=== PATIENT | female | born 1970 | race Caucasian/White ===

== ENCOUNTER 2023-04-29 21:50 | Outpatient (REF) | payer BC, SELFPAY ==
[2023-05-03 11:09] LABS: Age Gdln ACOG Testing Note (.); HPV Aptima Negative (Negative); IGP, Aptima HPV, rfx 16/18,45 Note (.)
== END 2023-04-29 21:51 | disposition home or self-care (01) ==
LOC: LAB 21:50
PROVIDERS: PCP Internal Medicine; Visit Provider Physician Assistant
DX: Z01.419 Encounter for gynecological examination (general) (routine) without abnormal findings (principal)
CPT/HCPCS: 87624; G0145

== ENCOUNTER 2023-12-05 09:30 | Outpatient (OUT) | payer BC, SELFPAY ==
--- NOTE | 2023-12-05 09:32 | MM_ITS ---
Patient Name: MARK CHRISTIAN MR#: [id number] : 1970 Exam Date: 12/05/2023 Ordering Doctor: DR Segundo Lee . RADIOLOGY REPORT PROCEDURE: MM TOMOSYNTHESIS SCREENING BI COMPARISON: MG MAMM SCREEN JOSEFA W CAD, 08/17/2019. MG MAMM SCREEN 3D JOSEFA CAD, 12/11/2021. INDICATIONS: Screening Calculator Name NCI Breast Cancer Risk Assessment Tool 5 Year Breast Cancer Risk 3.10% Lifetime Breast Cancer Risk 23.50% Personal Breast Cancer No Personal Ovarian Cancer No Treatments None Family Cancers Mother with breast cancer at age 46; Sister with breast cancer at age 48; Father with pancreatic cancer at age 42; Grandmother-maternal with gb/liver cancer at age ~70. LOCATION: [facility] BREAST COMPOSITION: Extremely dense, which lowers the sensitivity of mammography. FINDINGS: DIAGNOSTIC CATEGORY 1--NEGATIVE. NO CHANGE FROM COMPARISON ASSESSMENT. Scattered benign-appearing calcifications are present. Scattered benign-appearing lymph nodes are present. RIGHT BREAST: No significant suspicious finding. LEFT BREAST: No significant suspicious finding. RECOMMENDATIONS: ROUTINE MAMMOGRAM AND CLINICAL EVALUATION IN 12 MONTHS. PLEASE NOTE: A NORMAL MAMMOGRAM DOES NOT EXCLUDE THE POSSIBILITY OF BREAST CANCER. A CLINICALLY SUSPICIOUS PALPABLE LUMP SHOULD BE BIOPSIED. Dictated by: Steve Bermeo MD on 12/05/2023 at 13:50 Approved by: Steve Bermeo MD on 12/05/2023 at 13:51
== END 2023-12-05 09:31 | disposition home or self-care (01) ==
LOC: MAMMO 09:30
PROVIDERS: PCP Internal Medicine; Visit Provider Obstetrics & Gynecology
DX: Z12.31 Encounter for screening mammogram for malignant neoplasm of breast (principal); Z80.3 Family history of malignant neoplasm of breast; Z80.8 Family history of malignant neoplasm of other organs or systems
CPT/HCPCS: 77063; 77067

== ENCOUNTER 2024-05-04 21:24 | Outpatient (REF) | payer BC, SELFPAY ==
[2024-05-07 19:07] LABS: Age Gdln ACOG Testing Note (.); HPV Aptima Negative (Negative); IGP, Aptima HPV, rfx 16/18,45 Note (.)
== END 2024-05-04 21:25 | disposition home or self-care (01) ==
LOC: LAB 21:24
PROVIDERS: PCP Internal Medicine; Visit Provider Obstetrics & Gynecology
DX: Z01.419 Encounter for gynecological examination (general) (routine) without abnormal findings (principal)
CPT/HCPCS: 87624; 88175

== ENCOUNTER 2025-04-27 20:23 | Emergency (ER) | payer BC, SELFPAY ==
[2025-04-27 20:32] VITALS: BP 167/83; PULSE 83; TEMP 36.8; O2SAT 97; BMI 19.8
--- OUTSIDE RECORDS SUMMARY | 2025-04-27 20:34 | XMS_ITS | CCD ---
Author Organization [facility] Care Team Providers Care Hand Slitter Name Role Phone LUCIAN POON Admitting LUCIAN Fragoso Attending Unavailable DR ELIAN DIA Primary Care Unavailable MAKENNA, DR JR Bahena Consulting LUCIAN Fragoso Consulting Unavailable South NIEVES, Elian Monte Primary Care Provider DEVIN CANO Attending Unavailable ELIAN DIA Referring Unavailable ELIAN DIA Primary Care Unavailable ELIAN DIA Referring Unavailable ELIAN DIA Primary Care Unavailable DALE RUST Admitting Unavailable DALE RUST Attending Unavailable DALE RUST Referring Unavailable ELIAN DIA Primary Care Unavailable DALE RUST Attending Unavailable DALE RUST Referring Unavailable ELIAN DIA Primary Care Unavailable ZULEMA BLANKENSHIP Attending Unavailable ELIAN DIA Primary Care Unavailable Aimee Pena Primary Care Provider FIONA LEE Attending Unavailable FIONA LEE Referring Unavailable DALE MEYER Attending Unavailable ELIZABETH GUERRERO Referring Unavailable AIMEE OBRIEN Attending Unavailable DALE MEYER Attending Unavailable ELIZABETH GUERRERO Referring Unavailable DALE MEYER Attending Unavailable ELIZABETH GUERRERO Referring Unavailable DALE MEYER Attending Unavailable ELIZABETH GUERRERO Referring Unavailable DALE MEYER Attending Unavailable ELIZABETH GUERRERO Referring Unavailable JENA SOSA Attending Unavailable DALE MEYER Attending Unavailable DALE MEYER Attending Unavailable AIMEE OBRIEN Referring Unavailable DALE MEYER Attending Unavailable ELIZABETH GUERRERO Referring Unavailable Medications Current Medications Medication Drug Class(es) Dates Sig (Normalized) Sig (Original) Calcium Carb-Cholecalciferol (CALCIUM 500 + D3 PO) (13 sources) take 1 tablet by mouth once daily Calcium Carb-Cholecalcifero l (CALCIUM 500 + D3 PO) Take 1 tablet by mouth 1 (one) time each day Active magnesium gluconate 550 mg oral tablet (13 sources) take 1 tablet by mouth once daily magnesium 30 MG tablet Take 30 mg by mouth Daily Active Multiple Vitamin (multivitamin) capsule (13 sources) take 1 capsule by mouth once daily Multiple Vitamin (multivitamin) capsule Take 1 capsule by mouth Daily Active triamcinolone acetonide 1 mg/ml topical cream (5 sources) Corticosteroid Start: 11-04-2024 triamcinolone (Kenalog) 0.1 % cream Indications: Other atopic dermatitis Apply to affected area on hands and arms, up to twice a day when flared, do not use one the face, groin, or underarms, 30 day supply 454 g 11 11/04/2024 Active Problems Active Problems Problem Classification Problem Date Documented Date Episodic/Chronic Allergic reactions (2 sources) Atopic dermatitis; Translations: [Other atopic dermatitis] 11-04-2024 Chronic Disorders of lipid metabolism (16 sources) Raised low density lipoprotein cholesterol; Translations: [Pure hypercholesterolemia, unspecified] Onset: 06-30-2024 06-30-2024 Chronic Disorders of teeth and jaw (20 sources) Temporomandibular [id number]-[id number]-[id number] syndrome; Translations: [Arthralgia of temporomandibular joint, unspecified side] Onset: 06-10-2024 06-10-2024 Episodic Genitourinary symptoms and ill-defined conditions (14 sources) Female stress incontinence; Translations: [Stress incontinence (female) (male)] Onset: 06-30-2024 06-30-2024 Chronic Headache; including migraine (20 sources) Frequent headache; Translations: [Frequent headaches] Onset: 06-11-2024 06-11-2024 Episodic Other and unspecified benign neoplasm (2 sources) Melanocytic nevi of other parts of face; Translations: [Benign neoplasm of skin of other and unspecified parts of face] 11-04-2024 Episodic Other circulatory disease (2 sources) Spider nevus; Translations: [Nevus, non-neoplastic] 11-04-2024 Episodic Other screening for suspected conditions (not mental disorders or infectious disease) (9 sources) Encounter for screening mammogram for malignant neoplasm of breast; Translations: [Encounter for screening for malignant neoplasm of colon] Onset: 12-11-2021 Episodic Other skin disorders (2 sources) Lentiginosis; Translations: [Other melanin hyperpigmentation] 11-04-2024 Episodic Residual codes; unclassified (1 source) Family history of malignant neoplasm of breast; Translations: [FAMILY HX MALIG NEOPLASM OF BREAST] Onset: 12-14-2021 Episodic Residual codes; unclassified (1 source) Family history of malignant neoplasm of other organs or systems; Translations: [FAM HX MALIG NEOPLASM OTH ORGN/SYS] Onset: 12-14-2021 Episodic Spondylosis; intervertebral disc disorders; other back problems (20 sources) Neck pain; Translations: [Cervicalgia] Onset: 06-11-2024 06-11-2024 Episodic Unclassified (1 source) Colon Cancer Screening Onset: 01-01-2024 Unclassified (1 source) screening Onset: 01-20-2024 Past or Other Problems Problem Classification Problem Date Documented Date Episodic/Chronic Residual codes; unclassified (20 sources) Flushing; Translations: [Flushing] Onset: 05-04-2024 05-04-2024 Episodic Residual codes; unclassified (2 sources) Postmenopausal state; Translations: [Asymptomatic menopausal state] 05-04-2024 Episodic Results Test Name Value Interpretation Reference Range Facility CARDIOCHECK - LIPID AND GLUC OSEon 10-29-2024 Cholesterol [Mass/Vol] 218 mg/dL [facility] - 200 [facility] Cholesterol in HDL [Mass/Vol] 92 mg/dL M: 35-65 F: 35-80 [facility] Cholesterol in LDL [Mass/Vol] 126 mg/dL [facility] - 100 [facility] Glucose [Mass/Vol] 89 mg/dL [facility] - 100 [facility] Interpretation and review of laboratory results Abnormal [facility] Triglyceride [Mass/Vol] 81 mg/dL [facility] Glucose pre dose lactose PO [Mass/Vol]on 06-30-2024 Interpretation and review of laboratory results Normal [facility] Lipid 1996 panelon Cholesterol [Mass/Vol] 210 mg/dL [facility] Cholesterol.total/Ch olesterol in HDL [Mass ratio] 2.3 {ratio} [facility] HDL-C 91 [facility] Interpretation and review of laboratory results Abnormal [facility] LDL-C 104 [facility] Triglyceride [Mass/Vol] 76 mg/dL [facility] DEXA BONE DENSITYon 06-10-20 DEXA BONE DENSITY Examination: DEXA BONE DENSITY Clinical History: postmenopausal state Technique: Bone density study was performed. T score values for the lumbar spine, right femoral neck and left femoral neck were obtained. COMPARISON: None Findings: Value for the lumbar spine from L1-L4 is -2.1. Value for the right femoral neck is -1.8. Value for the left femoral neck is -2.0. Findings are compatible with severe osteopenia with moderate to high increased fracture risk. No evidence of osteoporosis. IMPRESSION: Impression: Findings compatible with severe osteopenia with moderate to high increased fracture risk. ELECTRONICALLY SIGNED BY: Stoney Santoyo M.D. Normal Not Available IGP,APTIMA HPV,AGE GDLNon AGE GDLN ACOG TESTING Note . [facility] Comment on above: TESTS RESULT FLAG UN ITS REF RANGE LAB Clinician Provided Cytology Information Source.............Cervix;Endocervix No. of containers..01 ThinPrep Vial Age Algo ACOG Jessica... 31 01 FLAG LEGEND: L-Low Normal,H-High Normal,LL-Alert Low,HH-Alert High <-Panic Low,>-Panic High,A-Abnormal,AA-Critical Abnormal Performed at: 01 =G [facility] [address] [address] Akanksha Castañeda MD, HPV APTIMA Negative Negative [facility] e Comment on above: This nucleic acid am plification test detects fourteen high- risk HPV types (16,18,31,33,35,39,45,51,52,56,58,59,66,68) without differentiation. Performed at: =G - [facility] [id number] Head Butler: Akanksha Castañeda MD, Phone: [phone] Performed at: - [facility], [place] [id number] Head Butler: Akanksha Castañeda MD, Phone: [phone] IGP, APTIMA HPV, RFX 16/18,45 Note . [facility] Comment on above: TESTS RESULT FLAG UN ITS REF RANGE LAB DIAGNOSIS: 02 NEGATIVE FOR INTRAEPITHELIAL LESION OR MALIGNANCY. Specimen adequacy: 02 Satisfactory for evaluation. Endocervical and/or squamous metaplastic cells (endocervical component) are present. Performed by: Josiah Noriega, Camp Housekeeper ([facility]) . 02 Note: Note 02 The Pap smear is a screening test designed to aid in the detection of premalignant and malignant conditions of the uterine cervix. It is not a diagnostic procedure and should not be used as the sole means of detecting cervical cancer. Both false-positive and false-negative reports do occur. Test Methodology: Note 02 This liquid based ThinPrep(R) pap test was screened with the use of an image guided system. HPV Genotype Reflex Note 02 Criteria not met, HPV Genotype not performed. FLAG LEGEND: L-Low Normal,H-High Normal,LL-Alert Low,HH-Alert High <-Panic Low,>-Panic High,A-Abnormal,AA-Critical Abnormal Performed at: 02 [facility] [address] [place] [address] Akanksha Castañeda MD, BRUSH-SPATULA CERVIX ENDOCERVIX [facility] MG MAMM SCREEN 3D JOSEFA CADon 12-11-2021 MG MAMM SCREEN 3D JOSEFA CAD Patient: GERTRUDE CHRISTIAN Exam Date: 12/11/2021 : 1970 Gender:F Ordering : DR. LUCIAN POON D.O. Admission #: [id number] Family : Order #: [id number] CLICK HERE TO VIEW EXAM RADIOLOGY REPORT PROCEDURE: MAMMOGRAM SCREENING 3D BILATERAL CAD COMPARISON: MG MAMM JOSEFA SCRN W CAD DIG, 07/10/2016. MG MAMM SCREEN JOSEFA W CAD, 08/17/2019. INDICATIONS: Screening mammography Calculator Name NCI Breast Cancer Risk Assessment Tool 5 Year Breast Cancer Risk 2.90% Lifetime Breast Cancer Risk 24.20% Personal Breast Cancer No Personal Ovarian Cancer No Treatments None Family Cancers Mother with breast cancer at age 46; Sister with breast cancer at age 48; Father with pancreatic cancer at age 42; Grandmother-maternal with gb/liver cancer at age 70. LOCATION: [facility] BREAST COMPOSITION: Extremely dense, which lowers the sensitivity of mammography. FINDINGS: DIAGNOSTIC CATEGORY 1--NEGATIVE. NO CHANGE FROM COMPARISON ASSESSMENT. Scattered benign-appearing calcifications are present. Scattered benign-appearing lymph nodes are present. RIGHT BREAST: No significant suspicious finding. LEFT BREAST: No significant suspicious finding. RECOMMENDATIONS: ROUTINE MAMMOGRAM AND CLINICAL EVALUATION IN 12 MONTHS. PLEASE NOTE: A NORMAL MAMMOGRAM DOES NOT EXCLUDE THE POSSIBILITY OF BREAST CANCER. A CLINICALLY SUSPICIOUS PALPABLE LUMP SHOULD BE BIOPSIED. Dictated by: Jr Bermeo MD on 12/11/2021 at 08:07 Approved by: Jr Bermeo MD on 12/11/2021 at 08:10 Normal [facility] Vital Signs Date Time Vital Sign Value Performing Clinician Faci lity 06-30-2024 16:22-0400 Body height 154.9 cm Aimee Hemmer PA Work Phone: [facility] 06-30-2024 [id number] Body mass index (BMI) [Ratio] 20.37 kg/m2 Aimee Hemmer PA Work Phone: [facility] 06-30-2024 16:22-0400 Body weight 48.9 kg Aimee Hemmer PA Work Phone: [facility] 06-30-2024 16:22-0400 Diastolic blood pressure 78 mm[Hg] Aimee Hemmer PA Work Phone: [facility] 06-30-2024 16:22-0400 Heart rate 63 /min Aimee Hemmer PA Work Phone: [facility] 06-30-2024 16:22-0400 Respiratory rate 16 /min Aimee Hemmer PA Work Phone: [facility] 06-30-2024 16:22-0400 SaO2% (BldA) [Mass fraction] 99 % Aimee Hemmer PA Work Phone: [facility] 06-30-2024 16:22-0400 Systolic blood pressure 136 mm[Hg] Aimee Hemmer PA Work Phone: [facility] 05-04-2024 13:21-0400 Body height 154.9 cm Fiona Jesus DO Work Phone: [facility] 05-04-2024 13:21-0400 Body mass index (BMI) [Ratio] 20.18 kg/m2 Fiona Jesus DO Work Phone: [facility] 05-04-2024 13:21-0400 Body weight 48.44 kg Fiona Jesus DO Work Phone: [facility] 05-04-2024 13:21-0400 Diastolic blood pressure 66 mm[Hg] Fiona Jesus DO Work Phone: [facility] 05-04-2024 13:21-0400 Systolic blood pressure 110 mm[Hg] Fiona Jesus DO Work Phone: [facility] Encounters Encounter Date Encounter Type Care Provider Facility Start: 12-23-2024 End: 12-23-2024 Bamboo flowsyuliya Meyer PT Work Phone: [facility] PT Start: 12-23-2024 End: 12-23-2024 Bamboo flowsheet Dale Meyer PT Work Phone: [facility] PT Start: 12-23-2024 End: 12-23-2024 ambulatory Dale Meyer PT Work Phone: [facility] PT Comment on above: Cervicalgia (Primary Dx); Frequent headaches; TMJ pain dysfunction syndrome Start: 12-07-2024 End: 12-07-2024 ambulatory Dale Meyer PT Work Phone: [facility] PT Comment on above: Cervicalgia (Primary Dx); Frequent headaches; TMJ pain dysfunction syndrome Start: 11-25-2024 End: 11-25-2024 ambulatory DALE MEYER Not Available Start: 11-04-2024 End: 11-04-2024 Bamboo flowsheet Jena A Felter MANAGER [employer] Work Phone: [facility] Start: 11-04-2024 End: 11-04-2024 Bamboo flowsheet Jena A Felter MANAGER [employer] Work Phone: [facility] Start: 11-04-2024 End: 11-04-2024 Office outpatient visit 25 minutes Jena A Felter MANAGER [employer] Work Phone: [facility] Comment on above: Other atopic dermati tis; Melanocytic nevus of face, other location; Lentigines; Capillary angioma Start: 11-04-2024 End: 11-04-2024 ambulatory JENA A FELTER Not Available Start: 10-29-2024 End: 10-29-2024 ambulatory FIONA LEE Not Available Start: 10-29-2024 End: 10-29-2024 [facility] encounter [facility] Comment on above: Screening for diabet es mellitus; Screening for lipoid disorders Start: 08-31-2024 End: 08-31-2024 ambulatory Dale Meyer PT Work Phone: [facility] Comment on above: Cervicalgia (Primary Dx); Frequent headaches; TMJ pain dysfunction syndrome Start: 08-20-2024 End: 08-20-2024 ambulatory Dale Meyer PT Work Phone: [facility] Comment on above: TMJ pain dysfunction syndrome (Primary Dx); Cervicalgia; Frequent headaches Start: 07-22-2024 End: 07-22-2024 ambulatory Dale Meyer PT Work Phone: [facility] Comment on above: Cervicalgia (Primary Dx); Frequent headaches; TMJ pain dysfunction syndrome Start: 07-01-2024 End: 07-01-2024 ambulatory Dale Meyer PT Work Phone: [facility] Comment on above: Cervicalgia (Primary Dx); Frequent headaches; TMJ pain dysfunction syndrome Start: 06-30-2024 End: 06-30-2024 Patient encounter status Aimee Obrien PA Work Phone: [facility] Work Phone: Start: 06-30-2024 End: 06-30-2024 Periodic preventive med est patient 40-64yrs Aimee Obrien PA Work Phone: [facility] Comment on above: Wellness examination (Primary Dx); Elevated LDL cholesterol level (CMS/HCC) Start: 06-30-2024 End: 06-30-2024 ambulatory AIMEE OBRIEN Not Available Start: 06-30-2024 End: 06-30-2024 Bamboo flowsheet Aimee Obrien PA Work Phone: [facility] Start: 06-30-2024 End: 06-30-2024 Bamboo flowsheet Aimee Obrien PA Work Phone: [facility] Start: 06-11-2024 End: 06-11-2024 Bamboo flowsheet Dale Meyer PT Work Phone: [facility] Start: 06-11-2024 End: 06-11-2024 Bamboo flowsheet Dale Meyer PT Work Phone: [facility] Start: 06-11-2024 End: 06-11-2024 ambulatory Dale Meyer PT Work Phone: [facility] Comment on above: TMJ pain dysfunction syndrome (Primary Dx); Cervicalgia; Frequent headaches Start: 06-10-2024 End: 06-10-2024 ambulatory FIONA JESUS Not Available Start: 05-04-2024 End: 05-04-2024 Bamboo flowsheet Fiona Jesus DO Work Phone: [facility] Start: 05-04-2024 End: 05-07-2024 Bamboo flowsheet Fiona Jesus DO Work Phone: [facility] Start: 05-04-2024 End: 05-07-2024 Clinis[facility] Result Encounter Fiona Jesus DO Work Phone: [facility] Unsolicited Start: 05-04-2024 End: 05-04-2024 Patient encounter procedure Fiona Jesus DO Work Phone: [facility] Work Phone: Start: 05-04-2024 End: 05-04-2024 Periodic preventive med est patient 40-64yrs Fiona Jesus DO Work Phone: [facility] Comment on above: Well woman exam with routine gynecological exam; Postmenopausal state; Hot flashes Start: 05-04-2024 End: 05-04-2024 ambulatory FIONA JESUS Not Available Start: 01-21-2024 End: 01-21-2024 Evaluation and management of inpatient ZULEMAJoel BLANKENSHIP [facility] Start: 01-20-2024 End: 01-21-2024 Evaluation and management of inpatient DALE RUST [facility] Start: 01-15-2024 End: 01-15-2024 ambulatory ELIAN DIA [facility] Start: 01-01-2024 End: 01-01-2024 ambulatory DEVIN CANO [facility] Start: 10-10-2023 Chart abstracting Jena avina MANAGER [employer] Work Phone: [facility] Start: 12-11-2021 End: 12-12-2021 ambulatory LUCIAN POON Facility: Procedures Date Procedure Procedure Detail Performing Clinician Start: 10-29-2024 Lipid panel Alonso Cruz DO Work Phone: Start: 05-04-2024 IGP,APTIMA HPV,AGE GDLN Fiona Lee DO Work Phone: Start: 05-04-2024 Microscopic observat ion [Identifier] in Cervix by Cyto stain Dale Meyer PT Work Phone: Start: 01-20-2024 Colonoscopy Dale azul PT Work Phone: Start: 12-05-2023 Mammography Dale azul PT Work Phone: Start: 11-05-2023 Glucose pre dose lac [place]se PO [Mass/Vol] Aimee Obrien PA Work Phone: Start: 11-05-2023 Lipid panel Aimee romero PA Work Phone: Plan of Treatment Date Care Activity Detail Author Start: 01-19-2034 Screening for malignant neoplasm of colon [facility] Start: 05-04-2027 Screening for malignant neoplasm of cervix [facility] Start: 11-23-2026 Screening for malignant neoplasm of cervix HPV/Cotest [facility] Start: 11-04-2025 End: 11-04-2025 Patient encounter procedure 11/04/2025 1:00 PM EST Office Visit [facility] [address] [place] [address] Jena Sosa, MANAGER [employer] [address] [place] [address] [facility] Start: 05-17-2025 End: 05-17-2025 Patient encounter procedure 05/17/2025 1:00 PM EDT Office Visit [facility] [address] [place] [address] Fiona Lee, DO [address] [place] [address] [facility] Start: 05-10-2025 Influenza vaccination Influenz a Vaccine (Season Ended) [facility] Start: 12-23-2024 End: 12-23-2024 ambulatory 12/23/2024 7:00 AM EDT Treatment [facility] [address] [place] [phone] Dale Meyer, PT [address] [place] [address] Cervicalgia (Primary Dx); Frequent headaches; TMJ pain dysfunction syndrome [facility] Comment on above: Cervicalgia (Primary Dx); Frequent headaches; TMJ pain dysfunction syndrome Start: 12-04-2024 Screening for malignant neoplasm of breast Mammogram [facility] Start: 11-04-2024 End: 11-04-2024 [facility] Comment on above: Arrived Start: 08-31-2024 End: 08-31-2024 ambulatory 08/31/2024 7:00 AM EST Treatment [facility] [address] [place] [address] Dale Meyer, PT [address] [place] [address] [facility] PT Start: 07-23-2024 End: 07-23-2024 ambulatory 07/23/2024 7:30 AM EST Treatment [facility] [address] [place] [address] Dale Meyer, PT [address] [place] [address] [facility] Start: 07-01-2024 End: 07-01-2024 ambulatory 07/01/2024 7:30 AM EDT Treatment [facility] [address] [place] [phone] Dale Meyer, PT [address] [place] [address] [facility] Start: 06-30-2024 End: 06-30-2024 Patient encounter procedure [facility] Comment on above: Arrived Start: 06-11-2024 End: 06-11-2024 ambulatory 06/11/2024 7:30 AM EDT Evaluation [facility] [address] [place] [phone] Dale Meyer, PT [address] [place] [address] TMJ pain dysfunction syndrome (Primary Dx) [facility] Comment on above: TMJ pain dysfunction syndrome (Primary Dx) Start: 05-10-2024 Influenza vaccination Influenza Vacc ine (#1) [facility] Start: 05-04-2024 End: 05-04-2025 DXA Skeletal system Views for bone density DEXA bone density Imaging Routine Postmenopausal state Expected: 05/04/2024 (Approximate), Expires: 05/04/2025 [facility] Work Phone: Comment on above: Expected: 05/04/2024 (Approximate), Expires: 05/04/2025 Start: 05-04-2024 End: 05-04-2024 Patient encounter procedure [facility] Comment on above: Arrived Start: 11-04-2023 End: 11-04-2023 Patient encounter procedure 11/04/2023 1:05 PM EST Office Visit [facility] [address] [place] [phone] Jena Sosa, MANAGER [employer] [address] [place] [address] [facility] Start: 1970 [facility] PREP TIS PAP AN D HR HPV DNA THIN PREP TIS PAP AND HR HPV DNA Pathology and Cytology Routine Well woman exam with routine gynecological exam Ordered: 05/04/2024 [facility] Comment on above: Ordered: 05/04/2024 Payers Date Payer Category Payer Unknown [id number] 2022 Private Health Insurance [id number] 2022 Unknown [id number] 2022 Unknown [id number] 1970 Unknown [id number] 2.16.84 0.1.263766.3.579.2.593 1970 Unknown [id number] 2.16.8 40.1.757817.3.579.2.1286 1970 Unknown [id number] 2.16.8 40.1.304155.3.579.2.1286 1970 Unknown [id number] 2.16.8 40.1.212101.3.579.2.1286 1970 Unknown [id number] 2.16.8 40.1.292776.3.579.2.1286 1970 Unknown [id number] 2.16.8 40.1.389643.3.579.2.1286 1970 Unknown [id number] 2.16.8 40.1.990987.3.579.2.1286 1970 Unknown [id number] 2.16.84 0.1.239165.3.579.2.1259 1970 Unknown [id number] 2.16.84 0.1.314321.3.579.2.1259 1971 Unknown [id number] 2.16.84 0.1.040402.3.579.2.1259 1971 Unknown [id number] 2.16.84 0.1.589314.3.579.2.1259 1971 Unknown [id number] 2.16.84 0.1.356774.3.579.2.1259 1971 Unknown [id number] 2.16.84 0.1.570444.3.579.2.1258 1971 Unknown [id number] 2.16.84 0.1.516417.3.579.2.9 1970 Unknown [id number] 2.16.84 0.1.552867.3.579.2.1258 1971 Unknown [id number] 2.16.84 0.1.296742.3.579.2.1258 1971 Unknown [id number] 2.16.84 0.1.679766.3.579.2.1258 1971 Unknown [id number] 2.16.84 0.1.927048.3.579.2.1258 1970 Unknown [id number] 2.16.84 0.1.694866.3.579.2.1258 1971 Unknown [id number] 2.16.84 0.1.700559.3.579.2.9 1958 Unknown [id number] Social History Date Type Detail Facility Start: 10-10-2023 End: 11-04-2023 Tobacco smoking status [facility] Never smoked tobacco [facility] Start: 10-10-2023 End: 11-04-2024 Alcohol intake Current drinker of alcohol (finding) [facility] Start: 1970 Sex Assigned At Not on file N [facility] Start: 10-31-2023 End: 11-04-2024 Gender identity Not on file [facility] Start: 11-04-2023 Tobacco use and exposure Smoke less tobacco non-user [facility] Start: 10-31-2023 End: 11-04-2024 History of Social function [facility] In a typical week, h ow many times do you talk on the telephone with family, friends, or neighbors? Patient declined [facility] Are you now , , , , never or living with a partner? [facility] (I/We) worried wheth er (my/our) food would run out before (I/we) got money to buy more. Never true [facility] In the past 12 month s, was there a time when you were not able to pay the mortgage or rent on time? No [facility] Clinical Notes 05-04-2024 to 12-23-2024 Dale Meyer, PT - 12/23/2024 7:00 AM Paz Meyer, PT - 12/07/2024 7:00 AM Kaylin Sosa, [employer] - 11/04/2024 1:05 PM Mame Caballero RN - 10/29/2024 9:00 AM EST Note Date & Type Note Facility 12-23-2024 History of Presen t illness Narrative Images from the original note were not included. Gertrude Christian [id number] 12/22/24 Subjective: Phone consult 06/10 53 yof sent to PT by Dr Guerrero for tmj syndrome L tmj dislocated, appliance lower teeth 2 months Hx tmj could always pop back in place in past Meniscus is in front of condyle Hoping to avoid surgery 7th Symptoms have gotten worse Doc wants me to get back to therapy 2nd Objective/Examination: *Posture: Impaired forward head syndrome and increased kyphosis *Cervical Motion: Impaired motion and discomfort/pain *TMJ Motion: Impaired with deviation to L upon mandibular depression *Cervical Proprioception Testing: Poor head neck awareness *Palpation: Tonic paraspinal and TMJ pterygoid mms Therapeutic Intervention: reEvaluation 12/23 Estim heat 15 Manual therapy 10 JOSE DANIEL Traction Chin tuck lift Catie 52 min Assessment: Suspected Therapy Diagnosis: TMJ and Cervical impairment Problems: Poor posture, impaired motion neck and TMJ, Poor postural strength, Intolerable pain, Stiffness TMJ, Difficulty eating, Neck pain and headaches Goals: Optimize posture, restore motion neck, improve alignment jaw, good postural strength, tolerable pain and ability to eat without dificulty, reduce neck pain & headaches Plan: Cervical manual therapy, TMJ manual therapy, Estim, Dry Needling, Aerobics/heat Frequency/Duration: Once every other week Potential: Good I hereby deem this POC medically necessary. Please sign below. Josiane Lu, DIMA, BOBBY, ANDIE Director Vestibular Rehabilitation documented in this encounter [facility] 12-07-2024 History of Presen t illness Narrative Images from the original note were not included. Gertrude Christian [id number] 12/04/24 Subjective: Phone consult 06/10 53 yof sent to PT by Dr Guerrero for tmj syndrome L tmj dislocated, appliance lower teeth 2 months Hx tmj could always pop back in place in past Meniscus is in front of condyle Hoping to avoid surgery 6th Symptoms have gotten worse Doc wants me to get back to therapy 2nd Objective/Examination: *Posture: Impaired forward head syndrome and increased kyphosis *Cervical Motion: Impaired motion and discomfort/pain *TMJ Motion: Impaired with deviation to L upon mandibular depression *Cervical Proprioception Testing: Poor head neck awareness *Palpation: Tonic paraspinal and TMJ pterygoid mms Therapeutic Intervention: reEvaluation 12/07 Estim heat 15 Manual therapy 12 JOSE DANIEL Chin tuck lift Catie Manual therapy and motion jose daniel spine 1 hour Assessment: Suspected Therapy Diagnosis: TMJ and Cervical impairment Problems: Poor posture, impaired motion neck and TMJ, Poor postural strength, Intolerable pain, Stiffness TMJ, Difficulty eating, Neck pain and headaches Goals: Optimize posture, restore motion neck, improve alignment jaw, good postural strength, tolerable pain and ability to eat without dificulty, reduce neck pain & headaches Plan: Cervical manual therapy, TMJ manual therapy, Estim, Dry Needling, Aerobics/heat Frequency/Duration: Once every other week Potential: Good I hereby deem this POC medically necessary. Please sign below. Josiane Lu, DIMA, BOBBY, ANDIE Director Vestibular Rehabilitation documented in this encounter [facility] 11-04-2024 History of Presen t illness Narrative Skin Check Location: Patient requests a full body skin examination Dermatologic history: no history of skin cancer, no history of atypical moles, family history of melanoma (mother) Last visit: 1 year ago Rash Location: left forearm, right hand Duration: 4 months Quality: itchy Associated symptoms: red, scaly Current treatments: Aquaphor, OTC benadryl, OTC HC cream Established patient All pertinent medical history, medications, and allergies were reviewed. General Exam: alert, oriented to person, place, and time, normal affect, well appearing Unaccompanied Scalp, Examined , exam limited by hair Right leg Examined Head, Face Examined Left leg Examined Neck Examined Right foot Examined Chest Examined Left foot Examined Back Examined Buttocks Examined Abdomen Examined Digits,nails: Examined Right arm Examined Patient wearing nail greek, Denies dark streaks on toenails Left arm Examined Lymphatics: Not examined Hands Examined 1. Other atopic dermatitis Left Elbow - Posterior, Left Forearm - Posterior, Left Hand - Posterior, Right Hand - Posterior Scaly erythematous plaques +/- dyspigmentation, lichenification, excoriations. Flaring today Discussed that atopic dermatitis is a chronic condition that can be controlled but not cured. Start TAC 0.1% cream bid prn when flared, hold if smooth/asymptomatic. Encouraged daily moisturizing and gentle cleansers to prevent flares. Notify office if flaring despite treatment. Related Medications triamcinolone (Kenalog) 0.1 % cream Apply to affected area on hands and arms, up to twice a day when flared, do not use one the face, groin, or underarms, 30 day supply 2. Melanocytic nevus of face, other location Right Alar Crease Scattered benign appearing, regular brown to light brown melanocytic papules and macules with similar morphology Counseled regarding these benign growths. Rarely, a nevus can develop into malignant melanoma, so any changing nevi should be promptly re-evaluated. 3. Lentigines Scattered bejarano macules in sun-exposed areas. The patient was informed that lentigines are benign pigmented lesions that occur on sun-exposed and sun-damaged skin. No treatment is necessary. Recommended regular use of broad spectrum sunscreen SPF 30 or higher 4. Capillary angioma (2) Abdomen (Lower Torso, Anterior), Chest (Upper Torso, Anterior) Scattered carter-red papule(s). The patient was informed that angiomas are benign growths on the the skin. No treatment is necessary. 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 documented in this encounter [facility] 08-31-2024 History of Presen t illness Narrative Images from the original note were not included. Gertrude Christian [id number] 08/30/24 Subjective: Phone consult 06/10 53 yof sent to PT by Dr Guerrero for tmj syndrome L tmj dislocated, appliance lower teeth 2 months Hx tmj could always pop back in place in past Meniscus is in front of condyle Hoping to avoid surgery 5h Objective/Examination: *Posture: Impaired forward head syndrome and increased kyphosis *Cervical Motion: Impaired motion and discomfort/pain *TMJ Motion: Impaired with deviation to L upon mandibular depression *Cervical Proprioception Testing: Poor head neck awareness *Palpation: Tonic paraspinal and TMJ pterygoid mms Therapeutic Intervention: reEvaluation Estim heat 12 Manual therapy 13 JOSE DANIEL chin tucks with pressure gauge Chin tuck lift T Catie Manips 39 Assessment: Suspected Therapy Diagnosis: TMJ and Cervical impairment Problems: Poor posture, impaired motion neck and TMJ, Poor postural strength, Intolerable pain, Stiffness TMJ, Difficulty eating, Neck pain and headaches Goals: Optimize posture, restore motion neck, improve alignment jaw, good postural strength, tolerable pain and ability to eat without dificulty, reduce neck pain & headaches Plan: Cervical manual therapy, TMJ manual therapy, Estim, Dry Needling, Aerobics/heat Frequency/Duration: Once every other week Potential: Good I hereby deem this POC medically necessary. Please sign below. Dale Meyer, DScPT, OCS, COMT, AIB-VAM Director Vestibular Rehabilitation documented in this encounter [facility] 08-20-2024 History of Presen t illness Narrative Images from the original note were not included. Gertrude Christian [id number] 08/19/24 Subjective: Phone consult 06/10 53 yof sent to PT by Dr Guerrero for tmj syndrome L tmj dislocated, appliance lower teeth 2 months Hx tmj could always pop back in place in past Meniscus is in front of condyle Hoping to avoid surgery 4th Objective/Examination: *Posture: Impaired forward head syndrome and increased kyphosis *Cervical Motion: Impaired motion and discomfort/pain *TMJ Motion: Impaired with deviation to L upon mandibular depression *Cervical Proprioception Testing: Poor head neck awareness *Palpation: Tonic paraspinal and TMJ pterygoid mms Therapeutic Intervention: reEvaluation Manual therapy 10 Estim heat 15 Postural jose daniel 10 Aerobics and ice 15 Assessment: Suspected Therapy Diagnosis: TMJ and Cervical impairment Problems: Poor posture, impaired motion neck and TMJ, Poor postural strength, Intolerable pain, Stiffness TMJ, Difficulty eating, Neck pain and headaches Goals: Optimize posture, restore motion neck, improve alignment jaw, good postural strength, tolerable pain and ability to eat without dificulty, reduce neck pain & headaches Plan: Cervical manual therapy, TMJ manual therapy, Estim, Dry Needling, Aerobics/heat Frequency/Duration: Once every other week Potential: Good I hereby deem this POC medically necessary. Please sign below. Dale Meyer, Josiane, OCS, COMT, AIB-VAM Director Vestibular Rehabilitation documented in this encounter [facility] 07-22-2024 History of Presen t illness Narrative Images from the original note were not included. Gertrude Christian [id number] 07/22/24 Subjective: Phone consult 06/10 53 yof sent to PT by Dr Guerrero for tmj syndrome L tmj dislocated, appliance lower teeth 2 months Hx tmj could always pop back in place in past Meniscus is in front of condyle Hoping to avoid surgery 3rd Objective/Examination: *Posture: Impaired forward head syndrome and increased kyphosis *Cervical Motion: Impaired motion and discomfort/pain *TMJ Motion: Impaired with deviation to L upon mandibular depression *Cervical Proprioception Testing: Poor head neck awareness *Palpation: Tonic paraspinal and TMJ pterygoid mms Therapeutic Intervention: reEvaluation Estim heat Manual therapy Review exercises Jose Daniel Aerobics iceGentle rom neck/arms with chin tuck See flow sheet 39 Assessment: Suspected Therapy Diagnosis: TMJ and Cervical impairment Problems: Poor posture, impaired motion neck and TMJ, Poor postural strength, Intolerable pain, Stiffness TMJ, Difficulty eating, Neck pain and headaches Goals: Optimize posture, restore motion neck, improve alignment jaw, good postural strength, tolerable pain and ability to eat without dificulty, reduce neck pain & headaches Plan: Cervical manual therapy, TMJ manual therapy, Estim, Dry Needling, Aerobics/heat Frequency/Duration: Once every other week Potential: Good I hereby deem this POC medically necessary. Please sign below. Dale Meyer, DScPT, OCS, COMT, AIB-VAM Director Vestibular Rehabilitation documented in this encounter [facility] 07-01-2024 History of Presen t illness Narrative Images from the original note were not included. Gertrude Christian [id number] 07/01/24 Subjective: Phone consult 06/10 53 yof sent to PT by Dr Guerrero for tmj syndrome L tmj dislocated, appliance lower teeth 2 months Hx tmj could always pop back in place in past Meniscus is in front of condyle Hoping to avoid surgery 2nd Objective/Examination: *Posture: Impaired forward head syndrome and increased kyphosis *Cervical Motion: Impaired motion and discomfort/pain *TMJ Motion: Impaired with deviation to L upon mandibular depression *Cervical Proprioception Testing: Poor head neck awareness *Palpation: Tonic paraspinal and TMJ pterygoid mms Therapeutic Intervention: reEvaluation Estim heat Manual therapy Review exercises Jose Daniel Aerobics iceGentle rom neck/arms with chin tuck See flow sheet 39 Assessment: Suspected Therapy Diagnosis: TMJ and Cervical impairment Problems: Poor posture, impaired motion neck and TMJ, Poor postural strength, Intolerable pain, Stiffness TMJ, Difficulty eating, Neck pain and headaches Goals: Optimize posture, restore motion neck, improve alignment jaw, good postural strength, tolerable pain and ability to eat without dificulty, reduce neck pain & headaches Plan: Cervical manual therapy, TMJ manual therapy, Estim, Dry Needling, Aerobics/heat Frequency/Duration: Once every other week Potential: Good I hereby deem this POC medically necessary. Please sign below. Dale Meyer, DScPT, OCS, COMT, AIB-VAM Director Vestibular Rehabilitation documented in this encounter [facility] 06-30-2024 History of Presen t illness Narrative Images from the original note were not included. Subjective Patient ID: Gertrude Christian is a 53 y.o. female who presents for wellness. Subjective Gertrude Christian is a 53 y.o. female and is here for a comprehensive physical exam. The patient reports no problems. Runs and walks routinely for exercise, anywhere from 2-4 miles, 3-5 times a week. Current Outpatient Medications on File Prior to Visit Medication Sig Dispense Refill Calcium Carb-Cholecalciferol (CALCIUM 500 + D3 PO) Take 1 tablet by mouth 1 (one) time each day magnesium 30 MG tablet Take 30 mg by mouth Daily Multiple Vitamin (multivitamin) capsule Take 1 capsule by mouth Daily No current facility-administered medications on file prior to visit. I have reviewed and reconciled the history and medication list with the patient today. No Known Allergies Social History Tobacco Use Smoking status: Never Smokeless tobacco: Never Vaping Use Vaping status: Never Used Substance Use Topics Alcohol use: Yes Drug use: Never Family History Problem Relation Name Age of Onset Breast cancer Mother Melanoma Mother Cancer Father Breast cancer Sister No Known Problems Sister No Known Problems Sister No Known Problems Brother Gallbladder disease Maternal Grandmother gallbladder cancer Colon cancer Paternal Grandmother Prostate cancer Paternal Grandfather Past Medical History: Diagnosis Date BPPV (benign paroxysmal positional vertigo) 2013 Traumatic BPPV (skull fx) Past Surgical History: Procedure Laterality Date SECTION, LOW TRANSVERSE COLONOSCOPY 01/20/2024 TUMOR EXCISION 1979 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 HENT: Negative for congestion, ear pain, rhinorrhea and sore throat. Eyes: Negative for pain, discharge and visual disturbance. Respiratory: Negative for cough, shortness of breath and wheezing. Cardiovascular: Negative for chest pain, palpitations and leg swelling. Gastrointestinal: Negative for abdominal pain, constipation, diarrhea, nausea and vomiting. Genitourinary: Negative for difficulty urinating, dysuria and frequency. Musculoskeletal: Negative for arthralgias and back pain. Skin: Negative for rash. Neurological: Negative for dizziness and numbness. Psychiatric/Behavioral: Negative for sleep disturbance. The patient is not nervous/anxious. Objective Physical Exam Constitutional: General: She is not in acute distress. Appearance: Normal appearance. She is well-developed. HENT: Head: Normocephalic and atraumatic. Right Ear: Tympanic membrane and ear canal normal. Left Ear: Tympanic membrane and ear canal normal. Nose: Nose normal. Mouth/Throat: Mouth: Mucous membranes are moist. Pharynx: No posterior oropharyngeal erythema. Eyes: General: No scleral icterus. Extraocular Movements: Extraocular movements intact. Conjunctiva/sclera: Conjunctivae normal. Pupils: Pupils are equal, round, and reactive to light. Cardiovascular: Rate and Rhythm: Normal rate and regular rhythm. Heart sounds: Normal heart sounds. No murmur heard. Pulmonary: Effort: Pulmonary effort is normal. No respiratory distress. Breath sounds: Normal breath sounds. No wheezing, rhonchi or rales. Abdominal: General: Bowel sounds are normal. There is no distension. Palpations: Abdomen is soft. Tenderness: There is no abdominal tenderness. There is no guarding. Musculoskeletal: General: No swelling or deformity. Normal range of motion. Cervical back: Normal range of motion and neck supple. No tenderness. Skin: General: Skin is warm and dry. Capillary Refill: Capillary refill takes less than 2 seconds. Findings: No rash. Neurological: General: No focal deficit present. Mental Status: She is alert and oriented to person, place, and time. Cranial Nerves: No cranial nerve deficit. Sensory: No sensory deficit. Motor: No weakness. Gait: Gait normal. Deep Tendon Reflexes: Reflexes normal. Psychiatric: Mood and Affect: Mood normal. Behavior: Behavior normal. Thought Content: Thought content normal. Judgment: Judgment normal. Assessment/Plan Diagnoses and all orders for this visit: Wellness examination Wellness form reviewed in detail with the patient. Encouraged patient to stay up to date on immunizations and preventative testing. Encouraged healthy diet, continue to stay active. Will continue with yearly wellness exams. Elevated LDL cholesterol level ([facility]) LDL was mildly elevated at 106. Her HDL was excellent at 91. No medication indicated at this time. Will plan to monitor yearly. Follow up in about 1 year (around 06/30/2025) for Wellness. documented in this encounter [facility] 06-11-2024 History of Presen t illness Narrative Images from the original note were not included. Gertrude Christian [id number] 06/10/24 Subjective: Phone consult 06/10 53 yof sent to PT by Dr Guerrero for tmj syndrome L tmj dislocated, appliance lower teeth 2 months Hx tmj could always pop back in place in past Meniscus is in front of condyle Hoping to avoid surgery Objective/Examination: *Posture: Impaired forward head syndrome and increased kyphosis *Cervical Motion: Impaired motion and discomfort/pain *TMJ Motion: Impaired with deviation to L upon mandibular depression *Cervical Proprioception Testing: Poor head neck awareness *Palpation: Tonic paraspinal and TMJ pterygoid mms Therapeutic Intervention: Evaluation Gentle rom neck/arms with chin tuck Posture education focus on chin tuck Catie chin tuck Manipulation C & TH spine Pterygoid release Estim/heat See flow sheet Assessment: Suspected Therapy Diagnosis: TMJ and Cervical impairment Problems: Poor posture, impaired motion neck and TMJ, Poor postural strength, Intolerable pain, Stiffness TMJ, Difficulty eating, Neck pain and headaches Goals: Optimize posture, restore motion neck, improve alignment jaw, good postural strength, tolerable pain and ability to eat without dificulty, reduce neck pain & headaches Plan: Cervical manual therapy, TMJ manual therapy, Estim, Dry Needling, Aerobics/heat Frequency/Duration: Once every other week Potential: Good I hereby deem this POC medically necessary. Please sign below. Dale Meyer, DScPT, OCS, COMT, AIB-VAM Director Vestibular Rehabilitation documented in this encounter [facility] 05-04-2024 History of Presen t illness Narrative Reason for Appointment: Patient ID: Gertrude Christian is a 53 y.o. female who presents for [facility] Women Visit Patient presents today for Annual Exam. MEDICATIONS No current outpatient medications ALLERGIES No Known Allergies PROBLEMS Active Ambulatory Problems Diagnosis Date Noted No Active Ambulatory Problems Resolved Ambulatory Problems Diagnosis Date Noted No Resolved Ambulatory Problems Past Medical History: Diagnosis Date BPPV (benign paroxysmal positional vertigo) 2012 HISTORY PAST MEDICAL HISTORY SOCIAL HISTORY Past Medical History: Diagnosis Date BPPV (benign paroxysmal positional vertigo) 2012 Traumatic BPPV (skull fx) Social History Tobacco Use Smoking status: Never Smokeless tobacco: Never Vaping Use Vaping status: Never Used Substance Use Topics Alcohol use: Yes Drug use: Never FAMILY HISTORY Family History Problem Relation Name Age of Onset Breast cancer Mother Melanoma Mother Cancer Father Breast cancer Sister No Known Problems Sister No Known Problems Sister No Known Problems Brother Gallbladder disease Maternal Grandmother gallbladder cancer Colon cancer Paternal Grandmother Prostate cancer Paternal Grandfather SURGICAL HISTORY Past Surgical History: Procedure Laterality Date SECTION, LOW TRANSVERSE 2002,2004 COLONOSCOPY 01/20/2024 TUMOR EXCISION 1979 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 OBJECTIVE Objective: Physical Exam Constitutional: Appearance: Normal appearance. She is well-developed. Genitourinary: Vulva normal. Breasts: Breasts are soft. Right: Normal. Left: Normal. Cardiovascular: Rate and Rhythm: Normal rate and regular rhythm. Pulmonary: Effort: Pulmonary effort is normal. Breath sounds: Normal breath sounds. Abdominal: General: Bowel sounds are normal. There is no distension. Palpations: Abdomen is soft. Tenderness: There is no abdominal tenderness. There is no guarding or rebound. Musculoskeletal: General: No swelling. Normal range of motion. Right lower leg: No edema. Left lower leg: No edema. Neurological: Mental Status: She is alert and oriented to person, place, and time. Skin: General: Skin is warm and dry. Psychiatric: Mood and Affect: Mood normal. Behavior: Behavior normal. Vitals and nursing note reviewed. Exam conducted with a outside sales engineer present. Vitals: Estimated body mass index is 20.18 kg/m as calculated from the following: Height as of this encounter: 5' 1 . Weight as of this encounter: 106 lb 12.8 oz. BP: 110/66 Patient's last menstrual period was 09/07/2023. ASSESSMENT & PLAN ICD-10-CM 1. Well woman exam with routine gynecological exam Z01.419 THIN PREP TIS PAP AND HR HPV DNA 2. Postmenopausal state Z78.0 DEXA bone density Annual: Patient presents today for an annual exam. Patient states she is doing well and has no complaints. Pap was obtained without difficulty and patient given mammogram order to have scheduled/obtained. Discussed hot flashes with patient and Veozah, Black Cohosh and Estroven-or- patient can try Celexa as well. If patient desires to try Veozah then she is to call office and then liver enzymes will be drawn and samples can be given samples of Veozah. Discussed hormonal replacement and patient does not desire at this time due to mothers cancer history. Orders Placed This Encounter Procedures DEXA bone density Follow Up: Patient is to return in one year for annual unless needed otherwise. Documented by Nadia Saxena LPN on behalf of: Fiona Lee DO documented in this encounter [facility] Healthcare Evaluation note Diagnosis TMJ pain dysfunction syndrome- Primary Cervicalgia Frequent headaches [facility] Diagnosis Wellness examination- Primary Elevated LDL cholesterol level (CMS/HCC) [facility]* Diagnosis Cervicalgia- Primary Frequent headaches TMJ pain dysfunction syndrome [facility]* Diagnosis Cervicalgia- Primary Frequent headaches TMJ pain dysfunction syndrome [facility]* Diagnosis TMJ pain dysfunction syndrome- Primary Cervicalgia Frequent headaches [facility]* Diagnosis Well woman exam with routine gynecological exam Routine gynecological examination Postmenopausal state Asymptomatic postmenopausal status (age-related) (natural) Hot flashes [facility]* Diagnosis Screening for diabetes mellitus Screening for lipoid disorders [facility]* Diagnosis Other atopic dermatitis Melanocytic nevus of face, other location Lentigines Capillary angioma Nevus, non-neoplastic [facility]* Diagnosis Cervicalgia- Primary Frequent headaches TMJ pain dysfunction syndrome [facility]* Diagnosis Cervicalgia- Primary Frequent headaches TMJ pain dysfunction syndrome [facility] Rehabilitation - Outpatient (Routine) - Authorized Specialty Diagnoses / Procedures Referred By Darwin t Referred To Contact Physical Therapy Diagnoses Unspecified temporomandibular joint disorder, unspecified side Procedures ND PHYSICAL THERAPY EVALUATION LOW COMPLEX 20 [place] [address] [facility] [place] [address] Phone: tel: fax: Dale Meyer, PT [address] [facility] [address] [place] [address] Phone: tel: fax: Referral ID Status Reason Start Date Expiration Date V isits Requested Visits Authorized [id number] Authorized 06/09/2024 12/06/2024 20 20 [facility] for [facility] Narrative* Rehabilitation - Outpatient (Routine) - Authorized Specialty Diagnoses / Procedures Referred By Darwin t Referred To Contact Physical Therapy Diagnoses Unspecified temporomandibular joint disorder, unspecified side Procedures ND PHYSICAL THERAPY EVALUATION LOW COMPLEX 20 [place] [address] [facility] [place] [id number] Phone: tel: fax: Dale Meyer, PT [address] [facility] [address] [place] [address] Phone: tel: fax: Referral ID Status Reason Start Date Expiration Date V isits Requested Visits Authorized [id number] Authorized 06/09/2024 09/08/2024 20 20 [facility] Narrative* Rehabilitation - Outpatient (Routine) - Authorized Specialty Diagnoses / Procedures Referred By Contac t Referred To Contact Physical Therapy Diagnoses Unspecified temporomandibular joint disorder, unspecified side Procedures ND PH[place] [address] [facility] [place] [address] Phone: tel: fax: Dale Meyer, PT [address] [place] [address] Phone: tel: Referral ID Status Reason Start Date Expiration Date V isits Requested Visits Authorized [id number] Authorized 11/25/2024 09/08/2025 12 12 [facility] Summary Purpose Family History No Family History Records FoundNo Family History Records FoundNo Family History Records FoundNo Family History Records Found Advance Directives No Advanced Directives Records FoundNo Advanced Directives Records FoundNo Advanced Directives Records FoundNo Advanced Directives Records Found Additional Source Comments INFORMATION SOURCE (unrecogn ized section and content) DATE CREATED AUTHOR 12/16/[address] [facility] DATE CREATED AUTHOR AUTHOR'S ORGANIZ ATION 01/03/2024 [facility] DATE CREATED AUTHOR AUTHOR'S ORGANIZ ATION 01/22/2024 [facility] DATE CREATED AUTHOR AUTHOR'S ORGANIZ ATION 12/25/2024 [facility] d[facility] Special[facility] Care Teams (unrecognized sec tion and content) Hand Slitter Relationship Specialty Start Date End Date Elian Dia MD [address] [place] [address] PCP - General Internal Medicine 04/29/23 Hand Slitter Relationship Specialty Start Date End Date Elian Dia MD [address] [place] [address] PCP - General Internal Medicine 04/29/23 Hand Slitter Relationship Specialty Start Date End Date Elian Dia MD [address] [place] [phone] PCP - General Internal Medicine 04/29/23 Hand Slitter Relationship Specialty Start Date End Date Elian Dia MD [address] [facility] [place] [address] PCP - General Internal Medicine 04/29/23 Hand Slitter Relationship Specialty Start Date End Date Elian Dia MD [address] [facility] [place] [phone] PCP - General Internal Medicine 04/29/23 Hand Slitter Relationship Specialty Start Date End Date Elian Dia MD [address] [place] [facility] [place] [address] PCP - General Internal Medicine 04/29/23 Hand Slitter Relationship Specialty Start Date End Date Aimee Obrien PA [address] [place] [address] PCP - General Family Medicine 07/01/24 Hand Slitter Relationship Specialty Start Date End Date Aimee Obrien PA [address] [place] [address] PCP - General Family Medicine 07/01/24 Hand Slitter Relationship Specialty Start Date End Date Elian Dia MD [address] [facility] [place] [address] PCP - General Internal Medicine 04/29/23 Hand Slitter Relationship Specialty Start Date End Date Aimee Obrien PA [address] [place] [address] PCP - General Family Medicine 07/01/24 Hand Slitter Relationship Specialty Start Date End Date Aimee Obrien PA [address] [facility] [address] [place] [address] PCP - [facility] Medicine 07/01/24 Hand Slitter Relationship Specialty Start Date End Date Aimee Obrien PA [address] [facility] [address] [place] [address] PCP - General Family Medicine 07/01/24 Hand Slitter Relationship Specialty Start Date End Date Aimee Obrien PA [address] [facility] [address] [place] [address] PCP - [facility] Medicine 07/01/24 Hand Slitter Relationship Specialty Start Date End Date Aimee Obrien PA [address] [facility] [address] [place] [address] PCP - General [facility] Medicine 07/01/24 Hand Slitter Relationship Specialty Start Date End Date Aimee Obrien PA [address] [facility] [address] [place] [address] PCP - General [facility] Medicine 07/01/24 Reason for Visit (unrecogniz ed section and content) Specialty Diagnoses / Procedures Referred By Contvincent t Referred To Contact Physical Therapy Diagnoses Unspecified temporomandibular joint disorder, unspecified side Procedures ND PHYSICAL THERAPY EVALUATION LOW COMPLEX 20 [place] [address] [facility] [place] [address] Dale Meyer, PT [address] [facility] [address] [facility] [address] [place] [address] Referral ID Status Reason Start Date Expiration Date V isits Requested Visits Authorized [id number] Authorized 06/09/2024 12/06/2024 20 20 Reason Comments Well Women Visit Reason Comments Skin Check Rash FOR RECORDS PERTAINING TO PATIENTS WHO ARE OR HAVE BEEN ENROLLED IN A CHEMICAL DEPENDENCY/SUBSTANCEABUSE PROGRAM, SOME INFORMATION MAY BE OMITTED. This clinical summary was aggregated from multiple sources. Caution should be exercised in using it in the provision of clinical care. This summary normalizes information from multiple sources, and as a consequence, information in this document may materially change the coding, format and clinical context of patient data. In addition, data may be omitted in some cases. CLINICAL DECISIONS SHOULD BE BASED ON THE PRIMARY CLINICAL RECORDS. [facility] [email or web address] [facility]. provides no warranty or guarantee of the accuracy or completeness of information in this document.
--- NOTE | 2025-04-27 20:41 | ED.GENADUL1 ---
HPI HPI - General Adult General Chief complaint: Skin/Abscess/Foreign Body Stated complaint: EYE Time Seen by Provider: 04/27/25 20:26 Source: patient Mode of arrival: walk-in Limitations: no limitations History of Present Illness HPI narrative: 54-year-old female presents with a chief complaint of rash to the right forehead radiating into the right scalp. Patient is currently being treated for shingles. She has been taking Valtrex for 3 days. She states she has had worsening swelling. Denies any eye involvement or blurred vision. Patient is here for further evaluation. Related Data Previous Rx's ?Medication ?Instructions ?Recorded gabapentin 300 mg capsule 300 mg PO DAILY #10 caps 04/27/25 Allergies Allergy/AdvReac Type Severity Reaction Status Date / Time No Known Drug Allergies Allergy Verified 04/27/25 20:31 Review of Systems ROS Status of ROS 10 or more systems reviewed and unremarkable except as noted in history and below PFSH PFSH Social History Little interest or pleasure in doing things: not at all Feeling down, depressed, or hopeless: not at all Exam Narrative Exam Narrative: All Systems are negative except as noted/marked.All systems reviewed and otherwise negative Nurses note and vital signs reviewed and patient is not hypoxic. General: The patient appears well and in no apparent distress. Patient is resting comfortably on cart. Skin: Warm, dry, no pallor noted. shingles, painful red cluster to forehead Right forehead scalp Head: Normocephalic, atraumatic Eye: Normal conjunctiva, no drainage, EOMI. PERRL Ears, Nose, Mouth, and Throat: oral mucosa is moist. Nares patent. Mouth without vesicles. Ear canals patent. Tm's without Erythema Cardiovascular: Regular Rate and Rhythm Respiratory: Patient is in no distress, no accessory muscle use, lungs are clear to auscultation, no wheezing, rales or rhonchi Back: non-tender, no CVA tenderness bilaterally to percussion. Musculoskeletal: The patient has no evidence of calf tenderness, no pitting edema, symmetrical pulses noted bilaterally Neurological: A&O x4, normal speech Psychiatric: Cooperative Constitutional Vital Signs, click to edit/add: Last Vital Signs Temp 98.3 F 04/27/25 20:32 Pulse 83 04/27/25 20:32 Resp 18 04/27/25 20:32 BP 167/83 H 04/27/25 20:32 Pulse Ox 97 04/27/25 20:32 O2 Del Method Room Air 04/27/25 20:32 Course Vital Signs Vital signs: Vital Signs Temperature 98.3 F 04/27/25 20:32 Pulse Rate 83 04/27/25 20:32 Respiratory Rate 18 04/27/25 20:32 Blood Pressure 167/83 H 04/27/25 20:32 Pulse Oximetry 97 04/27/25 20:32 Oxygen Delivery Method Room Air 04/27/25 20:32 Temperature 98.3 F 04/27/25 20:32 Pulse Rate 83 04/27/25 20:32 Respiratory Rate 18 04/27/25 20:32 Blood Pressure 167/83 H 04/27/25 20:32 Pulse Oximetry 97 04/27/25 20:32 Oxygen Delivery Method Room Air 04/27/25 20:32 Medical Decision Making MDM Narrative Medical decision making narrative: 54-year-old female presents with a chief complaint of rash to the right forehead radiating into the right scalp. Patient is currently being treated for shingles. She has been taking Valtrex for 3 days. She states she has had worsening swelling. Denies any eye involvement or blurred vision. Patient is here for further evaluation. With a 3-day history of a shingles infection that radiates from her forehead to the right scalp area. Right forehead has small clustered area that is scabbed over. Patient has been taking Valtrex for the past 2 days. Patient will be given an injection of a steroid here today of Solu-Medrol and a prescription for gabapentin. Patient will follow-up primary care physician. Patient agrees with plan of care Differential Diagnosis Differential Diagnosis: rash, shingles Medical Records Medical records reviewed: Yes I reviewed the patient's medical records Lab Data Lab results reviewed: Yes I reviewed the patient's lab results Discharge Plan Discharge Chief Complaint: Skin/Abscess/Foreign Body Clinical Impression: Shingles Patient Disposition: Home, Self-Care Time of Disposition Decision: 20:39 Condition: Good Prescriptions / Home Meds: New gabapentin 300 mg capsule 300 mg PO DAILY Qty: 10 0RF Print Language: Tajik Instructions: Shingles (ED) Referrals: Elian Dia DO [Primary Care Provider, Internal Medicine] - 1 week
[2025-04-27] MEDS: METHYLPREDNISOLONE SOD SUCC PF 125 MG/2 ML VIAL IM (20:54)
[2025-04-27] MEDS: TETRACAINE HCL 0.5% OP SOL 80 DROP/4 ML BOTTLE OP (20:57)
[2025-04-27] MEDS: FLUORESCEIN SODIUM 1 MG STRIP OP (20:57)
[2025-04-27] MEDS: KETOROLAC TROMETHAMINE 0.5% OP SOL 100 DROP/5 ML BOTTLE OP (20:58)
== END 2025-04-27 21:06 | disposition home or self-care (01) ==
PROVIDERS: Emergency Provider Emergency Medicine; PCP Internal Medicine
DX: B02.9 Zoster without complications (principal); R21 Rash and other nonspecific skin eruption
CPT/HCPCS: 96372; 99285; J2919

== ENCOUNTER 2025-05-17 21:24 | Outpatient (REF) | payer BC, SELFPAY ==
--- OUTSIDE RECORDS SUMMARY | 2025-05-17 13:00 | XMS_ITS | Encounter Summary ---
Author Organization [facility] Address [address] [place] [address] Care Team Providers Care Deputy Sheriff Generalist Name Role Phone Aimee Burkett Primary Care Provider [phone] Reason for Visit * Reason Comments Well Women Visit Encounter Details Date Type Department Care Team (Late st Contact Info) Description 05/17/2025 1:00 PM EDT Office Visit [facility] [address] [place] [address] Segundo Lee DO [address] [place] [id number] Well woman exam with routine gynecological exam; Breast cancer screening by mammogram Social History Tobacco Use Types Packs/Day Years Used Date Smoking Tobacco: Never Smokeless Tobacco: Never Alcohol Use Standard Drinks/Week Comments Yes 0 (1 standard drink = 0.6 oz pur e alcohol) Social Connection and Isolation Panel [NHANES] A nswer Date Recorded In a typical week, how many times do you talk on the phone with family, friends, or neighbors? Patient declined 10/31/2023 How often do you get togethe r with friends or relatives? Patient declined 10/31/2023 How often do you attend baptism or advent serv ices? Patient declined 10/31/2023 Do you belong to any clubs o r organizations such as baptism groups, unions, fraternal or athletic groups, or school groups? Patient declined 10/31/2023 How often do you attend meet ings of the clubs or organizations you belong to? Patient declined 10/31/2023 Are you , , di vorced, , never , or living with a partner? 10/31/2023 AUDIT-C Answer Date Recorded Q1: How often do you have a drink containing alc ohol? Patient declined 10/31/2023 Q2: How many drinks containi ng alcohol do you have on a typical day when you are drinking? Patient declined 10/31/2023 Q3: How often do you have si x or more drinks on one occasion? Patient declined 10/31/2023 Overall Financial Resource Strain (CARDIA) Answe r Date Recorded How hard is it for you to pa y for the very basics like food, housing, medical care, and heating? Not hard at all 10/31/2023 [facility] of Occupat ional Health - Occupational Stress Questionnaire Answer Date Recorded Do you feel stress - tense, restless, nervous, or anxious, or unable to sleep at night because your mind is troubled all the time - these days? Patient declined 10/31/2023 Exercise Vital Sign Answer Date Recorde d On average, how many days pe r week do you engage in moderate to strenuous exercise (like a brisk walk)? 4 days 10/31/2023 On average, how many minutes do you engage in exercise at this level? 30 min 10/31/2023 Hunger Vital Sign Answer Date Recorded Within the past 12 months, y ou worried that your food would run out before you got the money to buy more. Never true 10/31/19 24 Within the past 12 months, t he food you bought just didn't last and you didn't have money to get more. Never true 10/31/2023 PRAPARE - Transportation Answer Date Re corded In the past 12 months, has l ack of transportation kept you from medical appointments or from getting medications? No 10/11 In the past 12 months, has l ack of transportation kept you from meetings, work, or from getting things needed for daily living? No 10/31/2023 Housing Stability Vital Sign Answer Julio César e Recorded In the last 12 months, was t here a time when you were not able to pay the mortgage or rent on time? No 10/31/2023 Number of Places Lived in the Last Year Not on f ile 10/31/2023 In the last 12 months, was t here a time when you did not have a steady place to sleep or slept in a custodial (including now)? No 10/31/2023 Comments No Sex and Gender Information Value Date Recorded Sex Assigned at Not on file Legal Sex Female 6:56 PM EDT Gender Identity Not on file Sexual Orientation Not on file documented as of this encounter Last Filed Vital Signs Vital Sign Reading Time Taken Comments Blood Pressure 120/78 05/17/2025 1:07 PM EDT Pulse - - Temperature - - Respiratory Rate - - Oxygen Saturation - - Inhaled Oxygen Concentration - - Weight 51.3 kg (113 lb) 05/17/2025 1:07 PM EDT Height - - Body Mass Index 21.35 06/30/2024 4:22 PM EDT documented in this encounter Plan of Treatment Upcoming Encounters Date Type Department Care Team (Late st Contact Info) Description 05/26/2025 9:00 AM EDT Clinical Support [facility] CON[facility] [address] [place] [address] 11/04/2025 1:00 PM EST Office Visit [facility] [address] [place] [address] Jena Sosa, CHEMIST PHARMACEUTICAL-BRINE TANK SEPARATOR OPERATOR [address] [place] [address] 05/23/2026 8:30 AM EDT Procedure Visit [facility] [address] [place] [address] Segundo Lee DO [address] [place] [address] Scheduled Orders Name Type Priority Associated Diagnoses Orde r Schedule Bilateral screening mammogram Imaging Routine Breast cancer screening by mammogram Expected: 05/17/2025, Expires: 07/17/2026 THIN PREP TIS PAP AND HR HPV DNA Pathology and Cytology Routine Well woman exam with routine gynecological exam Ordered: 05/17/2025 documented as of this encounter Visit Diagnoses Diagnosis Well woman exam with routine gynecological exam Routine gynecological examination Breast cancer screening by mammogram documented in this encounter Care Teams Deputy Sheriff Generalist Relationship Specialty Start Date End Date Aimee Burkett PA [address] [place] [address] PCP - General Family Medicine 07/01/24 documented as of this encounter
--- OUTSIDE RECORDS SUMMARY | 2025-05-17 21:28 | XMS_ITS | Encounter Summary ---
Author Organization [facility] Address [address] [place] [address] Care Team Providers Care Flame Cutter Name Role Phone Elian Dia DO Primary Care Provider [phone] Aimee Burkett Primary Care Provider [phone] Encounter Details Date Type Department Care Team (Late st Contact Info) Description 05/14/2024 Orders Only [facility] [address] [place] [address] Margot Araujo LPN [address] [place] [id number] Social History Tobacco Use Types Packs/Day Years [...] declined 10/31/2023 How often do you attend lutheran or christian serv ices? Patient declined 10/31/2023 Do you belong to any clubs o r organizations such as lutheran groups, unions, fraternal or athletic groups, or [...] and heating? Not hard at all 10/31/2023 [facility] of Occupat ional [facility] - Occupational Stress Questionnaire Answer Date Recorded [...] place to sleep or slept in a retirement (including now)? No 10/31/2023 Comments Unknown Sex and Gender Information Value Date Recorded Sex Assigned at Not on file Legal Sex Female 6:56 PM EDT Gender Identity Not on file Sexual Orientation Not on file documented as of this encounter Plan of Treatment Upcoming Encounters Date Type Department Care Team (Late st Contact Info) Description 05/26/2025 9:00 AM EDT Clinical Support [facility] CON[facility] [address] [facility] [place] [phone] 11/04/2025 1:00 PM EST Office Visit [facility] [address] [place] [phone] Jena Sosa APRN-ROOM ATTENDANT [address] [place] [address] 05/23/2026 8:30 AM EDT Procedure Visit [facility] CON[facility] [address] [place] [phone] Segundo Lee DO [address] [facility] [address] [place], [place] [id number] documented as of this encounter Procedures Procedure Name Priority Date/Time Associated Diagnosis Comments PAP SMEAR Routine 05/04/2024 12:00 AM EDT documented in this encounter Results * Pap Smear (05/04/2024 12:00 AM EDT) Swab Cervical swab / Unknown [facility] CYTOLOGY ORDERABLES Final Result EXTERNAL LAB documented in this encounter Visit Diagnoses Not on filedocumented in this encounter Care Teams Flame Cutter Relationship Specialty Start Date End Date Elian Dia DO PCP - General Internal Medicine 04/29/23 06/30/24 Aimee Burkett PA [address] [place] [address] PCP - General Family Medicine 07/01/24 documented as of this encounter
--- OUTSIDE RECORDS SUMMARY | 2025-05-17 21:28 | XMS_ITS | Encounter Summary ---
Author Organization [facility] Address [address] [place] [address] Care Team Providers Care Global Category Manager Name Role Phone Aimee Burkett Primary Care Provider [phone] Encounter Details Date Type Department Care Team (Late st Contact Info) Description 07/01/2024 Abstract [facility] [address] [facility] [address] [place] [phone] Aimee Burkett PA [address] [facility] [address] [place] [address] Social History Tobacco Use Types Packs/Day Years [...] declined 10/31/2023 How often do you attend latter-day or holiness serv ices? Patient declined 10/31/2023 Do you belong to any clubs o r organizations such as latter-day groups, unions, fraternal or athletic groups, or [...] and heating? Not hard at all 10/31/2023 [facility] of Occupat ional Health - Occupational Stress [...] place to sleep or slept in a mcfp (including now)? No 10/31/2023 Comments Unknown Sex and Gender Information Value Date Recorded Sex Assigned at Not on file Legal Sex Female 6:56 PM EDT Gender Identity Not on file Sexual Orientation Not on file documented as of this encounter Plan of Treatment Upcoming Encounters Date Type Department Care Team (Late st Contact Info) Description 05/26/2025 9:00 AM EDT Clinical Support [facility] CON[facility] [address] [facility] [place] [phone] 11/04/2025 1:00 PM EST Office Visit [facility] [address] [place] [address] Jena Sosa APRN-AOC AIRSPACE CONTROL OFFICER [address] [place] [address] 05/23/2026 8:30 AM EDT Procedure Visit JOJO CONLEY [address] [facility] [place] [phone] Segundo Lee DO [address] [facility] [place] [address] documented as of this encounter Visit Diagnoses Not on filedocumented in this encounter Care Teams Global Category Manager Relationship Specialty Start Date End Date Aimee Burkett PA [address] [facility] [address] [place] [address] PCP - General Family Medicine 07/01/24 documented as of this encounter
--- OUTSIDE RECORDS SUMMARY | 2025-05-17 21:28 | XMS_ITS | Encounter Summary ---
Author Organization [facility] Address [address] [place] [address] Care Team Providers Care Nursing Home Admissions Director Name Role Phone Elian Dia DO Primary Care Provider [phone] Aimee Burkett Primary Care Provider Encounter Details Date Type Department Care Team (Late st Contact Info) Description 12/05/2023 Clinisync Result Encounter [facility] Unsolicited Segundo Lee DO [address] [place] [place], [place] [id number] Social History Tobacco Use Types Packs/Day Years [...] declined 10/31/2023 How often do you attend mandaen or [employer] serv ices? Patient declined 10/31/2023 Do you belong to any clubs o r organizations such as mandaen groups, unions, fraternal or athletic groups, or [...] and heating? Not hard at all 10/31/2023 [facility] - Occupational Stress [...] place to sleep or slept in a care home (including now)? No 10/31/2023 Comments Unknown Sex [...] AM EDT Clinical Support [facility] CON[facility] [address] [place] [phone] 11/04/2025 1:00 PM EST Office Visit [facility] [address] [place] [address] Jena Sosa, SLITTER [employer] WEB DEVELOPER [address] [place] [address] 05/23/2026 8:30 AM EDT Procedure Visit [facility] CON[facility] [address] [place] [id number] Segundo Lee DO [address] [place] [address] documented as of this encounter Procedures Procedure Name Priority Date/Time Associated Diagnosis Comments MM TOMOSYNTHESIS SCREENING BI 12/05/2023 1:52 PM EDT documented in this encounter Results * MM TOMOSYNTHESIS SCREENING BI (12/05/2023 1:52 PM EDT) Anatomical Region Laterality Modality Other 12/05/2023 1:52 PM EDT Narrative 12/05/2023 1:52 PM EDT The [address] [address] Mammography Report Signed Patient: GERTRUDE CHRISTIAN MR#: [id number] : 1970 Acct:[id number] Age/Sex: 53 / F ADM Date: 12/05/23 Loc: MAMMO Attending Dr: Segundo Lee D.O. Ordering Physician: Segundo Lee D.O. Results: Date of Service: 12/05/23 Follow Up: Procedure(s): MM tomosynthesis screening BI Accession Number(s): [id number] cc: Elian Dia D.O.; Segundo Lee D.O. Patient Name: GERTRUDE CHRISTIAN MR#: [id number] : 1970 Exam Date: 12/05/2023 Ordering Doctor: DR Segundo Lee . RADIOLOGY REPORT PROCEDURE: MM TOMOSYNTHESIS SCREENING BI COMPARISON: MG MAMM SCREEN JOSEFA W CAD, 08/17/2019. MG MAMM SCREEN 3D JOSEFA CAD, 12/11/2021. INDICATIONS: Screening Calculator Name NCI Breast Cancer Risk Assessment Tool 5 Year Breast Cancer Risk 3.10% Lifetime Breast Cancer Risk 23.50% Personal Breast Cancer No Personal Ovarian Cancer No Treatments None Family Cancers Mother with breast cancer at age 46; Sister with breast cancer at age 48; Father with pancreatic cancer at age 42; Grandmother-maternal with gb/liver cancer at age 70. LOCATION: The [facility] BREAST COMPOSITION: Extremely dense, which lowers [...] PALPABLE LUMP SHOULD BE BIOPSIED. Dictated by: Steve Bermeo MD on 12/05/2023 at 13:50 Approved by: Steve Bermeo MD on 12/05/2023 at 13:51 Dictated By: Steve Bermeo M.D. Signed By: 12/05/23 1352 DD/ 1352 TD/TT: Bobbin Cleaner: Procedure Note Radiology, RadiologistMD - 12/05/2023 [place] [address] Mammography Report Signed Patient: GERTRUDE CHRISTIAN JMR#: [id number] : 1970Acct:[id number] Age/Sex: 53 / FADM Date: 12/05/23 Loc: MAMMO Attending Dr: Segundo Lee D.O. Ordering Physician: Segundo Lee D.O.Results: Date of Service: 12/05/23Follow Up: Procedure(s): MM tomosynthesis screening BI Accession Number(s): [id number] cc: Elian Dia D.O.; Segundo Lee D.O. Patient Name: GERTRUDE CHRISTIAN MR#: [id number] : 1970 Exam Date: 12/05/2023 Ordering Doctor: DR Segundo Lee . RADIOLOGY REPORT PROCEDURE: MM TOMOSYNTHESIS SCREENING BI COMPARISON: MG MAMM SCREEN JOSEFA W CAD, 08/17/2019. MG MAMM SCREEN 3DBIL CAD, 12/11/2021. INDICATIONS: Screening Calculator Name NCI Breast Cancer Risk Assessment Tool 5 Year Breast Cancer Risk 3.10% Lifetime Breast Cancer Risk 23.50% Personal Breast Cancer No Personal Ovarian Cancer No Treatments None Family Cancers Mother with breast cancer at age 46; Sister with breast cancer at age 48; Father with pancreatic cancer at age 42; Grandmother-maternal with gb/liver cancer at age 70. LOCATION: The [facility] BREAST COMPOSITION: Extremely dense, which lowers the sensitivity of mammography. FINDINGS: DIAGNOSTIC CATEGORY 1--NEGATIVE. NO CHANGE FROM COMPARISON ASSESSMENT. Scattered benign-appearing calcifications are present. Scattered benign-appearing lymph nodes are present. RIGHT BREAST: No significant suspicious finding. LEFT BREAST: No significant suspicious finding. RECOMMENDATIONS: ROUTINE MAMMOGRAM AND CLINICAL EVALUATION IN 12 MONTHS. PLEASE NOTE: A NORMAL MAMMOGRAM DOES NOT EXCLUDE THE POSSIBILITY OFBREAST CANCER. A CLINICALLY SUSPICIOUS PALPABLE LUMP SHOULD BE BIOPSIED. Dictated by: Steve Bermeo MD on 12/05/2023 at 13:50 Approved by: Steve Bermeo MD on 12/05/2023 at 13:51 Dictated By: Steve Bermeo M.D. Signed By:12/05/23 1352 DD/ 51 TD/TT: Bobbin Cleaner: Segundo Lee DO [facility] Final Result documented in this encounter Visit Diagnoses Not on filedocumented in this encounter Care Teams Nursing Home Admissions Director Relationship Specialty Start Date End Date Elian Dia DO PCP - General Internal Medicine 04/29/23 06/30/24 Aimee Burkett PA [address] [place], [place] [phone] PCP - General Family Medicine 07/01/24 documented as of this encounter
--- OUTSIDE RECORDS SUMMARY | 2025-05-17 21:28 | XMS_ITS | CCD ---
Author Organization [facility] ion Partnership [facility] Care Team Providers Care Fiscal Services Manager Name Role Phone LUCIAN POON Admitting LUCIAN [...] Calcium Carb-Cholecalciferol (CALCIUM 500 + D3 PO) (14 sources) take 1 tablet by mouth once daily Calcium Carb-Cholecalcifero l (CALCIUM 500 + D3 PO) Take 1 tablet by mouth 1 (one) time each day Active magnesium gluconate 550 mg oral tablet (14 sources) take 1 tablet by mouth once daily magnesium 30 MG tablet Take 30 mg by mouth Daily Active Multiple Vitamin (multivitamin) capsule (14 sources) take 1 capsule by mouth once daily Multiple Vitamin (multivitamin) capsule Take 1 capsule by mouth Daily Active triamcinolone acetonide 1 mg/ml topical cream (6 sources) Corticosteroid Start: 11-04-2024 triamcinolone (Kenalog) 0.1 % cream Indications: Other atopic dermatitis Apply to affected area on hands and arms, up to twice a day when flared, do not use one the face, groin, or underarms, 30 day supply 454 g 11 11/04/2024 Active Problems Active Problems Problem Classification Problem Date Documented Da te Episodic/Chronic Allergic reactions (2 sources) Atopic dermatitis; Translations: [Other atopic dermatitis] 11-04-2024 Chronic Disorders of lipid metabolism (17 sources) Raised low density lipoprotein cholesterol; Translations: [Pure hypercholesterolemi a, unspecified] Onset: 06-30-2024 06-30-2024 Chronic Genitourinary symptoms and ill-defined conditions (15 sources) Female stress incontinence; Translations: [Stress incontinence (female) (male)] Onset: 06-30-2024 06-30-2024 Chronic Other and unspecified benign neoplasm (2 sources) [...] MALIG NEOPLASM OTH ORGN/SYS] Onset: 12-14-2021 Episodic Unclassified (1 source) Colon Cancer Screening Onset: 01-01-2024 Unclassified (1 source) screening Onset: 01-20-2024 Past or Other Problems Problem Classification Problem Date Documented Date Episodic/Chronic Disorders of teeth and jaw (20 sources) Temporomandibular wkoix-zbaf-eqavqsfjawc syndrome; Translations: [Arthralgia of temporomandibular joint, unspecified side] Onset: 06-10-2024 06-10-2024 Episodic Headache; including migraine (20 sources) Frequent headache; Translations: [Frequent headaches] Onset: 06-11-2024 06-11-2024 Episodic Residual codes; unclassified (20 sources) Flushing; Translations: [Flushing] Onset: 05-04-2024 05-04-2024 Episodic Residual codes; unclassified (2 sources) Postmenopausal state; Translations: [Asymptomatic menopausal state] 05-04-2024 Episodic Spondylosis; intervertebral disc disorders; other back problems (20 sources) Neck pain; Translations: [Cervicalgia] Onset: 06-11-2024 06-11-2024 Episodic Results Test Name Value Interpretation Reference Range Facility CARDIOCHECK - LIPID AND GLUC OSEon 10-29-2024 Cholesterol [Mass/Vol] 218 mg/dL [facility] - 200 [facility] Cholesterol in HDL [Mass/Vol] 92 mg/dL M: 35-65 F: 35-80 [facility] Cholesterol in LDL [Mass/Vol] 126 mg/dL [facility] - 100 [facility] Glucose [Mass/Vol] 89 mg/dL [facility] 100 [facility] Interpretation and review of laboratory results Abnormal [facility] Triglyceride [Mass/Vol] 81 mg/dL [facility] - 150 [facility] Glucose pre dose lactose PO [Mass/Vol]on 06-30-2024 Interpretation and review of laboratory results Normal [facility] 75 [facility] Lipid 1996 panelon Cholesterol [Mass/Vol] 210 mg/dL [facility] Cholesterol.total/Ch olesterol in HDL [Mass ratio] 2.3 {ratio} [facility] HDL-C 91 [facility] Interpretation and review of laboratory results Abnormal [facility] LDL-C 104 [facility] Triglyceride [Mass/Vol] 76 mg/dL [facility] DEXA BONE DENSITYon 06-10-20 DEXA [...] GDLNon AGE GDLN ACOG TESTING Note . [facility] Comment on above: TESTS RESULT FLAG UN ITS REF RANGE LAB Clinician Provided Cytology Information Source.............Cervix;Endocervix No. of containers..01 ThinPrep Vial Age Algo ACOG Jessica... 30-65 01 FLAG LEGEND: L-Low Normal,H-High Normal,LL-Alert Low,HH-Alert High <-Panic Low,>-Panic High,A-Abnormal,AA-Critical Abnormal Performed at: 01 =G [address] [address] Akanksha Castañeda MD, HPV APTIMA Negative Negative [facility] e Comment on above: This nucleic acid am plification test detects fourteen high- risk HPV types (16,18,31,33,35,39,45,51,52,56,58,59,66,68) without differentiation. Performed at: =G - [facility] [id number] Hospitality Coordinator: Akanksha Castañeda MD, Phone: [phone] Performed at: WB - [facility], [place] [id number] Hospitality Coordinator: Akanksha Castañeda MD, Phone: [phone] IGP, APTIMA HPV, RFX 16/18,[address] [facility] Comment on above: TESTS RESULT FLAG UN ITS REF RANGE LAB DIAGNOSIS: 02 NEGATIVE FOR INTRAEPITHELIAL LESION OR MALIGNANCY. Specimen adequacy: 02 Satisfactory for evaluation. Endocervical and/or squamous metaplastic cells (endocervical component) are present. Performed by: Josiah Noriega, [employer] Clown ([facility]) . 02 Note: Note 02 The Pap [...] High,A-Abnormal,AA-Critical Abnormal Performed at: 02 WB [facility] [place] [address] [place] [address] Akanksha Castañeda MD, BRUSH-SPATULA CERVIX ENDOCERVIX [facility] MG MAMM SCREEN 3D JOSEFA CADon 12-11-2021 MG MAMM SCREEN 3D JOSEFA CAD Patient: GERTRUDE CHRISTIAN Exam Date: 12/11/2021 : 1970 Gender:F Ordering : DR. LUCIAN POON D.O. Admission #: [id number] Family : Order #: [id number] CLICK HERE TO VIEW EXAM RADIOLOGY REPORT [...] gb/liver cancer at age 71. LOCATION: [facility] BREAST COMPOSITION: Extremely dense, which lowers [...] MD on 12/11/2021 at 08:10 Normal [facility] Vital Signs Date Time Vital Sign Value Performing Clinician Faci lity 06-30-2024 16:22-0400 Body height 154.9 cm Aimee Hemmer PA Work Phone: [facility] 06-30-2024 16:22-0400 Body mass index (BMI) [Ratio] 20.37 kg/m2 Aimee Hemmer PA Work Phone: [facility] 06-30-2024 16:22-0400 Body weight 48.9 kg Aimee Hemmer PA Work Phone: [facility] 06-30-2024 16:22-0400 Diastolic blood pressure 78 mm[Hg] Aimee Hemmer PA Work Phone: [facility] 06-30-2024 16:22-0400 Heart rate 63 /min Aimee Hemmer PA Work Phone: [facility] 06-30-2024 16:22-0400 Respiratory rate 16 /min Aimee Hemmer PA Work Phone: [facility] 06-30-2024 16:22-0400 SaO2% (BldA) [Mass fraction] 99 % Aimee Hemmer PA Work Phone: [facility] 06-30-2024 16:22-0400 Systolic blood pressure 136 mm[Hg] Aimee Hemmer PA Work Phone: [facility] 05-04-2024 13:21-0400 Body height 154.9 cm Fiona Jesus DO Work Phone: [facility] 05-04-2024 13:21-0400 Body mass index (BMI) [Ratio] 20.18 kg/m2 Fiona Jesus DO Work Phone: [facility] 05-04-2024 13:21-0400 Body weight 48.44 kg Fiona Jesus DO Work Phone: [facility] 05-04-2024 13:21-0400 Diastolic blood pressure 66 mm[Hg] Fiona Jesus DO Work Phone: [facility] 05-04-2024 13:21-0400 Systolic blood pressure 110 mm[Hg] Fiona Jesus DO Work Phone: [facility] Encounters Encounter Date Encounter Type Care Provider Facility Start: 05-17-2025 End: 05-17-2025 Bamboo flowsheet Fiona Jesus DO Work Phone: [facility] Start: 05-17-2025 End: 05-17-2025 Bamboo flowsheet Fiona Jesus DO Work Phone: [facility] Start: 12-23-2024 End: 12-23-2024 Bamboo flowsheet Dale Meyer PT Work Phone: [facility] Start: 12-23-2024 End: 12-23-2024 Bamboo flowsheet Dale Meyer PT Work Phone: [facility] Start: 12-23-2024 End: 12-23-2024 ambulatory Dale Meyer PT Work Phone: [facility] PT Comment on above: Cervicalgia (Primary Dx); Frequent headaches; TMJ pain dysfunction syndrome Start: 12-07-2024 End: 12-07-2024 ambulatory Dale Meyer PT Work Phone: [facility] PT Comment on above: Cervicalgia (Primary Dx); Frequent headaches; TMJ pain dysfunction syndrome Start: 11-25-2024 End: 11-25-2024 ambulatory DALE MEYER Not Available Start: 11-04-2024 End: 11-04-2024 Bamboo flowsheet Jena Hernandez Saader DIGITAL COORDINATOR-FISH TECHNOLOGIST Work Phone: [facility] Start: 11-04-2024 End: 11-04-2024 Bamboo flowsheet Jena A Felter DIGITAL COORDINATOR-FISH TECHNOLOGIST Work Phone: [facility] Start: 11-04-2024 End: 11-04-2024 Office outpatient visit 25 minutes Jena Nasher DIGITAL COORDINATOR-FISH TECHNOLOGIST Work Phone: [facility] Comment on above: Other atopic dermati tis; Melanocytic nevus of face, other location; Lentigines; Capillary angioma Start: 11-04-2024 End: 11-04-2024 ambulatory JENA SOSA Not Available Start: 10-29-2024 End: 10-29-2024 ambulatory FIONA LEE Not Available Start: 10-29-2024 End: 10-29-2024 Patient encounter procedure [facility] Comment on above: Screening for diabet es mellitus; Screening for lipoid disorders Start: 08-31-2024 End: 08-31-2024 ambulatory Dale Meyer PT Work Phone: [facility] PT Comment on above: Cervicalgia (Primary Dx); Frequent headaches; TMJ pain dysfunction syndrome Start: 08-20-2024 End: 08-20-2024 ambulatory Dale Meyer PT Work Phone: [facility] PT Comment on above: TMJ pain dysfunction syndrome (Primary Dx); Cervicalgia; Frequent headaches Start: 07-22-2024 End: 07-22-2024 ambulatory Dale Meyer PT Work Phone: [facility] PT Comment on above: Cervicalgia (Primary Dx); Frequent headaches; TMJ pain dysfunction syndrome Start: 07-01-2024 End: 07-01-2024 ambulatory Dale Meyer PT Work Phone: [facility] PT Comment on above: Cervicalgia (Primary [...] End: 01-21-2024 Evaluation and management of inpatient ZULEMA BLANKENSHIP [facility] Start: 01-20-2024 End: 01-21-2024 Evaluation and management of inpatient DALE RUST [facility] Start: 01-15-2024 End: 01-15-2024 ambulatory ELIAN DIA [facility] Start: 01-01-2024 End: 01-01-2024 ambulatory DEVIN CANO [facility] Start: 10-10-2023 Chart abstracting Jena Pimentel lter DIGITAL COORDINATOR-FISH TECHNOLOGIST Work Phone: [facility] Start: 12-11-2021 End: 12-12-2021 ambulatory LUCIAN POON Facility:H1 Procedures Date Procedure Procedure Detail Performing Clinician Start: 10-29-2024 Lipid panel Alonso Cruz DO Work Phone: Start: 05-04-2024 IGP,APTIMA HPV,AGE GDLN Fiona Lee DO Work Phone: Start: 05-04-2024 Microscopic observat ion [Identifier] in Cervix by Cyto stain Dale Meyer PT Work Phone: Start: 01-20-2024 Colonoscopy Dale Garo azul PT Work Phone: Start: 12-05-2023 Mammography Dale azul PT Work Phone: Start: 11-05-2023 Glucose pre dose lac tose PO [Mass/Vol] Aimee Obrien PA Work Phone: Start: 11-05-2023 Lipid panel Aimee romero PA Work Phone: Plan of Treatment Date Care Activity Detail Author Start: 01-19-2034 Screening for malignant neoplasm of colon [facility] Start: 05-04-2027 Screening for malignant neoplasm of cervix [facility] Start: 11-23-2026 Screening for malignant neoplasm of cervix HPV/Cotest [facility] Start: 11-04-2025 End: 11-04-2025 Patient encounter procedure [facility] Start: 05-17-2025 End: 05-17-2025 Patient encounter procedure [facility] Comment on above: Arrived Start: 05-10-2025 Influenza vaccination [facility] Start: 12-23-2024 End: 12-23-2024 ambulatory 12/23/2024 7:00 AM EDT Treatment [facility] [address] [place] [address] Dale Meyer, PT [address] [place] [address] Cervicalgia (Primary Dx); Frequent headaches; TMJ pain dysfunction syndrome [facility] Comment on above: Cervicalgia (Primary Dx); Frequent headaches; TMJ pain dysfunction syndrome Start: 12-04-2024 Screening for malignant neoplasm of breast Mammogram [facility] Start: 11-04-2024 End: 11-04-2024 Patient encounter procedure [facility] Comment on above: Arrived Start: 08-31-2024 End: 08-31-2024 ambulatory 08/31/2024 7:00 AM EST Treatment [facility] [address] [place] [address] Dale Meyer, PT [address] [place] [address] [facility] Start: 07-23-2024 End: 07-23-2024 ambulatory 07/23/2024 7:30 AM EST Treatment [facility] [address] [place] [address] Dale Meyer, PT [address] [place] [address] [facility] Start: 07-01-2024 End: 07-01-2024 ambulatory 07/01/2024 7:30 AM EDT Treatment [facility] [address] [place] [address] Dale Meyer, PT [address] [place] [address] [facility] Start: 06-30-2024 End: 06-30-2024 Patient encounter procedure [facility] Comment on above: Arrived Start: 06-11-2024 End: 06-11-2024 ambulatory 06/11/2024 7:30 AM EDT Evaluation [facility] PT [address] [place] [address] Dale Meyer, PT [address] [place] [address] TMJ pain dysfunction syndrome (Primary Dx) [facility] Comment on above: TMJ pain dysfunction syndrome (Primary Dx) Start: 05-10-2024 Influenza vaccination Influenza Vacc ine (#1) [facility] Start: 05-04-2024 End: 05-04-2025 DXA Skeletal system Views for bone density DEXA bone density Imaging Routine Postmenopausal state Expected: 05/04/2024 (Approximate), Expires: 05/04/2025 [facility] Work Phone: Comment on above: Expected: 05/04/2024 (Approximate), Expires: 05/04/2025 Start: 05-04-2024 End: 05-04-2024 Patient encounter procedure [facility] Comment on above: Arrived Start: 11-04-2023 End: 11-04-2023 Patient encounter procedure 11/04/2023 1:05 PM EST Office Visit [facility] [address] [place] [address] Jena Sosa, DIGITAL COORDINATOR-FISH TECHNOLOGIST [address] [place], [place] [id number] [facility] Start: 1970 Screening for malignant neoplasm of colon [facility] THIN PREP TIS PAP AN D HR HPV DNA THIN PREP TIS PAP AND HR HPV DNA Pathology and Cytology Routine Well woman exam with routine gynecological exam Ordered: 05/04/2024 [facility] Comment on above: Ordered: 05/04/2024 Payers Date Payer Category Payer Unknown [id number] 2022 Private Health Insurance [id number] 2022 Unknown [id number] 2022 Unknown [id number] 1970 Unknown [id number] 2.16.84 0.1.760027.3.579.2.593 1970 Unknown [id number] 2.16.8 40.1.777600.3.579.2.1286 1970 Unknown [id number] 2.16.8 40.1.765163.3.579.2.1285 1970 Unknown [id number] 2.16.8 40.1.416317.3.579.2.1285 1971 Unknown [id number] 2.16.8 40.1.775016.3.579.2.1285 1970 Unknown [id number] 2.16.8 40.1.511801.3.579.2.1285 1971 Unknown [id number] 2.16.8 40.1.174176.3.579.2.1286 1970 Unknown [id number] 2.16.84 0.1.146370.3.579.2.9 1970 Unknown [id number] 2.16.84 0.1.191020.3.579.2.9 1971 Unknown [id number] 2.16.84 0.1.101376.3.579.2.9 1970 Unknown [id number] 2.16.84 0.1.267245.3.579.2.1259 1971 Unknown [id number] 2.16.84 0.1.097396.3.579.2.1258 1971 Unknown [id number] 2.16.84 0.1.997801.3.579.2.9 1971 Unknown [id number] 2.16.84 0.1.453887.3.579.2.1258 1970 Unknown [id number] 2.16.84 0.1.116647.3.579.2.9 1970 Unknown [id number] 2.16.84 0.1.182035.3.579.2.1258 1971 Unknown [id number] 2.16.84 0.1.479733.3.579.2.1258 1971 Unknown [id number] 2.16.84 0.1.824600.3.579.2.1258 1971 Unknown [id number] 2.16.84 0.1.421764.3.579.2.1258 1971 Unknown [id number] 2.16.84 0.1.573394.3.579.2.9 1959 Unknown [id number] Social History Date Type Detail Facility Start: 10-10-2023 End: 11-04-2023 Tobacco smoking status [facility] Never smoked tobacco [facility] Start: 10-10-2023 End: 11-04-2024 Alcohol intake Current drinker of alcohol (finding) [facility] Start: 1970 Sex Assigned At Not on file N [facility] Start: 10-31-2023 End: 11-04-2024 Gender identity Not on file [facility] Start: 11-04-2023 Tobacco use and exposure Smoke less tobacco non-user [facility] Start: 10-31-2023 End: 11-04-2024 History of Social function [facility] In a typical week, h ow many times do you talk on the telephone with family, friends, or neighbors? Patient declined [facility] Are you now , , , , never or living with a partner? [facility] (I/We) worried wheth er (my/our) food [...] PT - 12/07/2024 7:00 AM Kaylin Sosa, DIGITAL COORDINATOR-FISH TECHNOLOGIST - 11/04/2024 1:05 PM Mame Caballero RN - 10/29/2024 9:00 AM EST Note Date & Type Note Facility 12-23-2024 History of Presen t illness Narrative Images from the original note were not included. Gertrude Christian [id number] 12/22/24 Subjective: Phone consult 06/10 53 yof [...] medically necessary. Please sign below. Dale Meyer, YayoPT, OCS, COMT, AIB-VAM Director Vestibular Rehabilitation documented in this encounter [facility] 12-07-2024 History of Presen t illness Narrative Images from the original note were not included. Gertrude Christian [id number] 12/04/24 Subjective: Phone consult 06/10 53 yof [...] Director Vestibular Rehabilitation documented in this encounter [facility] 11-04-2024 History of Presen t [...] Examined Right arm Examined Patient wearing nail estonian, Denies dark streaks on toenails Left arm [...] Visit: 1 year documented in this encounter 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 documented in this encounter [facility] 08-31-2024 History of Presen t illness Narrative Images from the original note were not included. Gertrude Christian [id number] 08/30/24 Subjective: Phone consult 06/10 53 yof [...] medically necessary. Please sign below. Dale Meyer, YayoPT, OCS, COMT, AIB-VAM Director Vestibular Rehabilitation documented in this encounter [facility] 08-20-2024 History of Presen t illness Narrative Images from the original note were not included. Gertrude Christian [id number] 08/19/24 Subjective: Phone consult 06/10 53 yof [...] Director Vestibular Rehabilitation documented in this encounter [facility] 07-22-2024 History of Presen t illness Narrative Images from the original note were not included. Gertrude Christian [id number] 07/22/24 Subjective: Phone consult 06/10 53 yof [...] Director Vestibular Rehabilitation documented in this encounter [facility] 07-01-2024 History of Presen t illness Narrative Images from the original note were not included. Gertrude Christian [id number] 07/01/24 Subjective: Phone consult 06/10 53 yof [...] Director Vestibular Rehabilitation documented in this encounter [facility] 06-30-2024 History of Presen t [...] positional vertigo) 2012 Traumatic BPPV (skull fx) Past Surgical History: [...] yearly wellness exams. Elevated LDL cholesterol level ([facility]) LDL was mildly elevated at 106. Her HDL was excellent at 91. No medication indicated at this time. Will plan to monitor yearly. Follow up in about 1 year (around 06/30/2025) for Wellness. documented in this encounter [facility] 06-11-2024 History of Presen t illness Narrative Images from the original note were not included. Gertrude Christian [id number] 06/10/24 Subjective: Phone consult 06/10 53 yof [...] Director Vestibular Rehabilitation documented in this encounter [facility] 05-04-2024 History of Presen t illness Narrative Reason for Appointment: Patient ID: Gertrude Christian is a 53 y.o. female who presents for Well Women Visit Patient presents today for Annual Exam. MEDICATIONS No current outpatient medications ALLERGIES No Known Allergies PROBLEMS Active Ambulatory Problems Diagnosis Date Noted No Active Ambulatory Problems Resolved Ambulatory Problems Diagnosis Date Noted No Resolved Ambulatory Problems Past Medical History: Diagnosis Date BPPV (benign paroxysmal positional vertigo) 2013 HISTORY PAST MEDICAL HISTORY SOCIAL HISTORY Past [...] nursing note reviewed. Exam conducted with a plant pathology teacher present. Vitals: Estimated body mass index is [...] Fiona Lee DO documented in this encounter [facility] Evaluation note Diagnosis TMJ pain dysfunction syndrome- Primary Cervicalgia Frequent headaches documented in this encounter [facility]* Diagnosis Wellness examination- Primary Elevated LDL cholesterol level ([facility]) documented in this encounter [facility] [...] Unspecified temporomandibular joint disorder, unspecified side Procedures RI PHYSICAL THERAPY EVALUATION LOW COMPLEX 20 [place] [address] [facility] [place] [address] Phone: tel: fax: Dale Meyer, PT [address] [facility] [address] [place] [address] Phone: tel: fax: Referral ID Status Reason Start Date Expiration Date V isits Requested Visits Authorized [id number] Authorized 06/09/2024 12/06/2024 20 20 [facility] N[facility]ative* Rehabilitation - Outpatient (Routine) - Authorized Specialty Diagnoses / Procedures Referred By Contac t Referred To Contact Physical Therapy Diagnoses Unspecified temporomandibular joint disorder, unspecified side Procedures RI PHYSICAL THERAPY EVALUATION LOW COMPLEX 20 [place] [address] [facility] [place] [id number] Phone: tel: fax: Dale Meyer, PT [address] [facility] [address] [place] [address] Phone: tel: fax: Referral ID Status Reason Start Date Expiration Date V isits Requested Visits Authorized [id number] Authorized 06/09/2024 09/08/2024 20 20 [facility] Narrative* Rehabilitation - Outpatient (Routine) - Authorized Specialty Diagnoses / Procedures Referred By Contac t Referred To Contact Physical Therapy Diagnoses Unspecified temporomandibular joint disorder, unspecified side Procedures RI PH[place]ER[place] [address] [facility] [place] [id number] Phone: tel: fax: Dale Meyer, PT [address] [place] [address] Phone: tel: Referral ID Status Reason Start Date Expiration Date V isits Requested Visits Authorized [id number] Authorized 11/25/2024 09/08/2025 12 12 [facility] Summary Purpose Family History No Family History Records FoundNo Family History Records FoundNo Family History Records FoundNo Family History Records Found Advance Directives No Advanced Directives Records FoundNo Advanced Directives Records FoundNo Advanced Directives Records FoundNo Advanced Directives Records Found Additional Source Comments INFORMATION SOURCE (unrecogn ized section and content) DATE CREATED AUTHOR 12/16/2021 [facility] DATE CREATED AUTHOR AUTHOR'S ORGANIZ ATION 01/03/2024 [facility] DATE CREATED AUTHOR AUTHOR'S ORGANIZ ATION 01/22/2024 [facility] DATE CREATED AUTHOR AUTHOR'S ORGANIZ ATION 12/25/2024 [facility] [place] [facility] dical Specialists [employer] Care Teams (unrecognized sec tion and content) Fiscal Services Manager Relationship Specialty Start Date End Date Elian Dia MD [address] [place] [address] PCP - General Internal Medicine 04/29/23 Fiscal Services Manager Relationship Specialty Start Date End Date Elian Dia MD [address] [place] [address] PCP - General Internal Medicine 04/29/23 Fiscal Services Manager Relationship Specialty Start Date End Date Elian Dia MD [address] [place] [address] PCP - General Internal Medicine 04/29/23 Fiscal Services Manager Relationship Specialty Start Date End Date Elian Dia MD [address] [place] [address] PCP - General Internal Medicine 04/29/23 Fiscal Services Manager Relationship Specialty Start Date End Date Elian Dia MD [address] [facility] [place] [address] PCP - General Internal Medicine 04/29/23 Fiscal Services Manager Relationship Specialty Start Date End Date Elian Dia MD [address] [facility] [place] [address] PCP - General Internal Medicine 04/29/23 Fiscal Services Manager Relationship Specialty Start Date End Date Aimee Obrien PA [address] [place] [address] PCP - General Family Medicine 07/01/24 Fiscal Services Manager Relationship Specialty Start Date End Date Aimee Obrien PA [address] [place] [address] PCP - General Family Medicine 07/01/24 Fiscal Services Manager Relationship Specialty Start Date End Date Elian Dia MD [address] [facility] [place] [address] PCP - General Internal Medicine 04/29/23 Fiscal Services Manager Relationship Specialty Start Date End Date Aimee Obrien PA [address] [place] [address] PCP - General Family Medicine 07/01/24 Fiscal Services Manager Relationship Specialty Start Date End Date Aimee Obrien PA [address] [place] [address] PCP - General Family Medicine 07/01/24 Fiscal Services Manager Relationship Specialty Start Date End Date Aimee Obrien PA [address] [facility] [address] [place] [address] PCP - General Family Medicine 07/01/24 Fiscal Services Manager Relationship Specialty Start Date End Date Aimee Obrien PA [address] [facility] [address] [place] [address] PCP - General Family Medicine 07/01/24 Fiscal Services Manager Relationship Specialty Start Date End Date Aieme Obrien PA [address] [facility] [address] [place] [address] PCP - [facility] Medicine 07/01/24 Fiscal Services Manager Relationship Specialty Start Date End Date Aimee Obrien PA [address] [facility] [address] [place] [address] PCP - General Family Medicine 07/01/24 Fiscal Services Manager Relationship Specialty Start Date End Date Aimee Obrien PA [address] [facility] [address] [place] [address] PCP - General [facility] Medicine 07/01/24 Reason for Visit (unrecogniz ed section and content) Specialty Diagnoses / Procedures Referred By Contac t Referred To Contact Physical Therapy Diagnoses Unspecified temporomandibular joint disorder, unspecified side Procedures RI PHYSICAL THERAPY EVALUATION LOW COMPLEX 20 [place] [address] [facility]. [address] [place] [address] Dale Meyer, PT [address] [facility] [address] [place] [address] Referral ID Status Reason Start Date Expiration Date V isits Requested Visits Authorized [id number] Authorized 06/09/2024 12/06/2024 20 20 Reason Comments [...] BE BASED ON THE PRIMARY CLINICAL RECORDS. [facility]. provides no warranty or guarantee of the accuracy or completeness of information in this document.
--- OUTSIDE RECORDS SUMMARY | 2025-05-17 21:28 | XMS_ITS | Clinical Summary ---
Author Organization [facility] Address [address] [place] [address] Care Team Providers Care Studio Grip Name Role Phone Aimee Burkett Primary Care Provider [phone] Allergies No known active allergies Medications Calcium Carb-Cholecalc iferol (CALCIUM 500 + D3 PO) Take 1 tablet by mouth 1 (one) time each day Active Multiple Vitamin (multivitamin) capsule Take 1 capsule by mouth Daily Active magnesium 30 MG tablet Take 30 mg by mouth Daily Active Rhubarb (ESTROVEN COMPLETE PO) Take 1 tablet by mouth Daily Active triamcinolone (Kenalog) 0.1 % creamIndicatio ns:Other atopic dermatitis Apply to affected area on hands and arms, up to twice a day when flared, do not use one the face, groin, or underarms, 30 day supply 454 g 11 5 025 Discontinued Active Problems Problem Noted Date Diagnosed Date Female stress incontinence 06/30/2024 Elevated LDL cholesterol level 06/30/2024 Cervicalgia 06/11/2024 Frequent headaches 06/11/2024 TMJ pain dysfunction syndrome 06/10/2024 Hot flashes 05/04/2024 Encounters Date Type Department Care Team Description 05/17/2025 1:00 PM EDT Office Visit [facility] [address] [place] [id number] Segundo Lee, DO Well woman exam with routine gynecological exam; Breast cancer screening by mammogram 05/17/2025 Bamboo flowsheet [facility] [address] [place] [address] Segundo Lee, from Last 3 Months Family History Medical History Relation Name Comments No Known Problems Brother Cancer Father Gallbladder disease Maternal Grandmother gallbladder cancer Breast cancer Mother Melanoma Mother Prostate cancer Paternal Grandfather Colon cancer Paternal Grandmother Breast cancer Sister 1 No Known Problems Sister 2 No Known Problems Sister 3 Relation Name Status Comments Brother Daughter Alive Father Maternal Grandmother Mother Paternal Grandfather Paternal Grandmother Sister 1 Sister 2 Sister 3 Son Alive Social History Tobacco Use Types Packs/Day Years Used Date Smoking Tobacco: Never Smokeless Tobacco: Never Tobacco Cessation:Counseling Given: Not Answered Alcohol Use Standard Drinks/Week Comments Yes 0 [...] declined 10/31/2023 How often do you attend evangelical or anabaptist serv ices? Patient declined 10/31/2023 Do you belong to any clubs o r organizations such as evangelical groups, unions, fraternal or athletic groups, or [...] and heating? Not hard at all 10/31/2023 [facility] [place] of Occupat ional Health - Occupational Stress [...] care home (including now)? No 10/31/2023 Comments No Sex and Gender Information Value Date Recorded Sex Assigned at Not on file Legal Sex Female 6:56 PM EDT Gender Identity Not on file Sexual Orientation Not on file Last Filed Vital Signs Vital Sign Reading Time Taken Comments Blood Pressure 120/78 05/17/2025 1:07 PM EDT Pulse 63 06/30/2024 4:22 PM EDT Temperature - - Respiratory Rate 16 06/30/2024 4:22 PM EDT Oxygen Saturation 99% 06/30/2024 4:22 PM EDT Inhaled Oxygen Concentration - - Weight 51.3 kg (113 lb) 05/17/2025 1:07 PM EDT Height 154.9 cm (5' 1 ) 06/30/2024 4:22 PM EDT Body Mass Index 21.35 06/30/2024 4:22 PM EDT Plan of Treatment Upcoming Encounters Date Type Department Care Team (Late st Contact Info) Description 05/26/2025 9:00 AM EDT [facility] [address] [place] [phone] 11/04/2025 1:00 PM EST Office Visit [facility] [address] [place] [address] Jena Sosa, LITIGATION SERVICES MANAGER-EDUCATION LIAISON [address] [place] [address] 05/23/2026 8:30 AM EDT Procedure Visit [facility] [address] [place] [phone] Segundo Lee DO [address] [facility] [address] [place] [address] Health Maintenance Due Date Last Done Comments CT Colonography 1971 FIT-DNA 1971 FIT 1971 FOBT 1970 Sigmoidoscopy 1971 Mammogram 12/04/2024 12/05/2023, 11/22/2021 Influenza Vaccine (#1) 2025 HPV/Cotest 11/23/2026 11/23/2021, 11/16/2020, 10/11 Cervical Cancer Screening 05/04/2027 Pap Smear 05/04/2027 05/04/2024 Colonoscopy 01/19/2034 01/20/2024, 01/20/2024, 01/07 Colorectal Cancer Screening 01/19/2034 Procedures Procedure Name Priority Date/Time Associated Diagnosis Comments PAP SMEAR Routine 05/04/2024 12:00 AM EDT MM TOMOSYNTHESIS SCREENING BI 12/05/2023 1:52 PM EDT THINPREP TIS PAP REFLEX HPV MRNA E6/E7 ([id number]) Routine 11/23/2021 from Last 3 Months or Most Recently Relevant to Health Maintenance Results * Pap Smear (05/04/2024 12:00 AM EDT) Swab Cervical swab / Unknown Jesus [facility] CYTOLOGY ORDERABLES Final Result EXTERNAL LAB * MM TOMOSYNTHESIS SCREENING BI (12/05/2023 1:52 PM EDT) Anatomical Region Laterality Modality Other 12/05/2023 1:52 PM EDT Narrative 12/05/2023 1:52 [place] [address] Mammography Report Signed Patient: GERTRUDE CHRISTIAN MR#: [id number] : 1970 Acct:[id number] Age/Sex: 53 / F ADM Date: 12/05/23 Loc: MAMMO Attending Dr: Segundo Lee D.O. Ordering Physician: Segundo Lee D.O. Results: Date of Service: 12/05/23 Follow Up: Procedure(s): MM tomosynthesis screening BI Accession Number(s): [id number] cc: Elian Dia D.O.; Segundo Lee D.O. Patient Name: GERTRUDE CHRISTIAN MR#: [id number] : 1970 Exam Date: 12/05/2023 Ordering Doctor: [...] gb/liver cancer at age 71. LOCATION: [facility] BREAST COMPOSITION: Extremely dense, which lowers [...] Bermeo M.D. Signed By: 12/05/23 1352 DD/ 51 TD/TT: Dynamometer Tester: Procedure Note Radiology, Radiologist, MD - 12/05/2023 [place] [address] Mammography Report Signed Patient: GERTRUDE CHRISTIAN JMR#: [id number] : 1970Acct:[id number] Age/Sex: 53 / FADM Date: 12/05/23 Loc: MAMMO Attending Dr: Segundo Lee D.O. Ordering Physician: Segundo Lee D.O.Results: Date of Service: 12/05/23Follow Up: Procedure(s): MM tomosynthesis screening BI Accession Number(s): [id number] cc: Elian Dia D.O.; Segundo Lee D.O. Patient Name: GERTRUDE CHRISTIAN MR#: [id number] : 1970 Exam Date: 12/05/2023 Ordering Doctor: [...] gb/liver cancer at age 71. LOCATION: [facility] BREAST COMPOSITION: Extremely dense, which lowers [...] Dictated By: Steve Bermeo M.D. Signed By:12/05/23 135 DD/ 51 TD/TT: Dynamometer Tester: us Segundo Jesus DO [facility] Final Result * THINPREP TIS PAP REFLEX HPV MRNA E6/E7 ([id number]) (11/23/2021) CLINICAL INFORMATION: None given [facility] LMP: 11/02/21 [facility] PREV. PAP: 11/2020 [facility]. BX: None given [facility] SOURCE: Cervix, Endocervix [facility] STATEMENT OF ADEQUACY: SEE COMMENT [facility] Comment: Satisfactory for evaluation. Endocervical/transformation zone component present. INTERPRETATION /RESULT: Negative for intraepithelial lesion or malignancy. [facility] COMMENT: This Pap test has been evaluated with computer assisted technology. [facility] CYTOTECHNOLOGI ST: SEE COMMENT See Note: [facility] Comment: Reference Range: ZL, CT(ASCP) CT screening location: [place] [address]. COMMENT SEE COMMENT [facility] Comment: EXPLANATORY NOTE: The Pap is a screening test for cervical cancer. It is not a diagnostic test and is subject to false negative and false positive results. It is most reliable when a satisfactory sample, regularly obtained, is submitted with relevant clinical findings and history, and when the Pap result is evaluated along with historic and current clinical information. NO COLLECTION DATE RECEIVED. WE HAVE USED THE DATE THE SPECIMEN WAS RECEIVED BY THIS LABORATORY THE COLLECTION DATE. IF THIS IS INCORRECT, PLEASE CONTACT CLIENT SERVICES. PHONE NUMBER: [phone] 11/23/2021 us Dina Larkin DO [facility] Final Resul t [facility] from Last 3 Months or Most Recently Relevant to Health Maintenance Insurance [employer] Care Teams Studio Grip Relationship Specialty Start Date End Date Aimee Burkett PA [address] [facility] [address] [place] [address] PCP - General Family Medicine 07/01/24
--- OUTSIDE RECORDS SUMMARY | 2025-05-17 21:28 | XMS_ITS | Encounter Summary ---
Author Organization [facility] Address [address] [place] [address] Care Team Providers Care Rn Bariatric Name Role Phone Aimee Burkett Primary Care Provider [phone] Encounter Details Date Type Department Care Team (Late st Contact Info) Description 05/17/2025 Bamboo flowsheet [facility] [address] [place] [address] Segundo Lee DO [address] [place], [place] [address] Social History Tobacco Use Types Packs/Day Years [...] declined 10/31/2023 How often do you attend catholic or restoration serv ices? Patient declined 10/31/2023 Do you belong to any clubs o r organizations such as catholic groups, unions, fraternal or athletic groups, or [...] and heating? Not hard at all 10/31/2023 [facility] [place] of Occupat ional Health - Occupational Stress [...] place to sleep or slept in a senior living (including now)? No 10/31/2023 Comments No Sex [...] AM EDT Clinical Support [facility] [address] [place] [address] 11/04/2025 1:00 PM EST Office Visit [facility] [place] [facility] [address] [place] [address] Jena Sosa APRN-WELFARE SERVICE AIDE [address] [place] [address] 05/23/2026 8:30 AM EDT Procedure Visit [facility] [address] [place] [phone] Segundo Lee DO [address] [facility] [place] [address] documented as of this encounter Visit Diagnoses Not on filedocumented in this encounter Care Teams Rn Bariatric Relationship Specialty Start Date End Date Aimee Burkett PA [address] [facility] [address] [place] [address] PCP - General Family Medicine 07/01/24 documented as of this encounter
--- OUTSIDE RECORDS SUMMARY | 2025-05-17 21:28 | XMS_ITS | Clinical Summary ---
Author Organization [employer] s tem Address [id number] [address] [place] [address] Care Team Providers Care Library Technician Name Role Phone Elian Dia DO Primary Care Provider [phone] Allergies No known active allergies Medications No known medications Active Problems No known active problems Family History Medical History Relation Name Comments Pancreatic cancer Father Breast cancer Mother Colon cancer Paternal Grandmother Breast cancer Sister Relation Name Status Comments Father Mother Paternal Grandmother Sister Social History Tobacco Use Types Packs/Day Years Used Date Smoking Tobacco: Never Smokeless Tobacco: Never Tobacco Cessation:Counseling Given: Not Answered Alcohol Use Standard Drinks/Week Comments Yes 0 (1 standard drink = 0.6 oz pur e alcohol) weekends Childcare Answer Date Recorded Childcare Unknown 02/18/2019 Employment Answer Date Recorded Employment Unknown 02/18/2019 Hunger Screening Answer Date Recorded Within the past 12 months we worried whether our food would run out before we got money to buy more. Never True 01/01/2024 Within the past 12 months th e food we bought just didn't last and we didn't have money to get more. Never True 01/01/2024 Comments No Sex and Gender Information Value Date Recorded Sex Assigned at Not on file Legal Sex Female 12:00 PM EDT Gender Identity Not on file Sexual Orientation Not on file Last Filed Vital Signs Vital Sign Reading Time Taken Comments Blood Pressure 122/87 01/20/2024 8:43 AM EDT Pulse 78 01/20/2024 8:43 AM EDT Temperature 36.6 C (97.9 F) 01/20/2024 6:31 AM EDT Respiratory Rate 16 01/20/2024 8:43 AM EDT Oxygen Saturation 99% 01/20/2024 8:43 AM EDT Inhaled Oxygen Concentration - - Weight 49.9 kg (110 lb) 01/20/2024 6:31 AM EDT Height 154.9 cm (5' 1 ) 01/20/2024 6:31 AM EDT Body Mass Index 20.78 01/20/2024 6:31 AM EDT Plan of Treatment Health Maintenance Due Date Last Done Comments Depression Screening 1983 DTaP,Tdap and Td Vaccines (1 - Tdap) 1990 Pap Smear 1992 Zoster (Shingles) Vaccine (1 of 2) 2021 Adult BMI Screening 01/19/2025 01/20/2024 Tobacco Screening 01/19/2025 01/20/2024 Influenza Vaccine 05/10/2025 Colonoscopy 01/19/2034 01/20/2024, 01/20/2024 Medical Devices Not on file Procedures Procedure Name Priority Date/Time Associated Diagnosis Comments PROVATION COLONOSCOPY Routine 01/20/2024 6:17 AM EDT from Last 3 Months or Most Recently Relevant to Health Maintenance Results * Colonoscopy Report (01/20/2024 6:17 AM EDT) Narrative SYSTEMGENERATED, DOCUMENTATION - 01/20/2024 6:17 AM EDT This order has been auto-finalized for image and report archival in PACs. *For full report details, please reach out to your physician. This image is visible to you in MyChart.* us Sal Burgess DO IMG OR IMG ORDERABLES Final Result from Last 3 Months or Most Recently Relevant to Health Maintenance Insurance [employer] Care Teams Library Technician Relationship Specialty Start Date End Date Elian Dia DO [address] [place] [address] PCP - General Internal Medicine 12/18/23
--- OUTSIDE RECORDS SUMMARY | 2025-05-17 21:28 | XMS_ITS | Encounter Summary ---
Author Organization [facility] Address [address] [facility] [place] [address] Care Team Providers Care Obstetrics And Gynecology Professor Name Role Phone SouthElian Primary Care Provider [phone] Aimee Burkett Primary Care Provider [phone] Encounter Details Date Type Department Care Team (Late st Contact Info) Description 07/17/2023 Orders Only [facility] [address] [place], [place] [address] [address] Aimee Saavedra LPN Social History Tobacco Use Types Packs/Day Years Used Date Smoking Tobacco: Never Assessed Comments Unknown Sex and Gender Information Value Date Recorded Sex Assigned at Not on file Legal Sex Female 6:56 PM EDT Gender Identity Not on file Sexual Orientation Not on file documented as of this encounter Plan of Treatment Upcoming Encounters Date Type Department Care Team (Late st Contact Info) Description 05/26/2025 9:00 AM EDT Clinical Support [facility] [address] [place] [address] 11/04/2025 1:00 PM EST Office Visit [facility] [address] [place] [address] Jena Sosa APRN-PRESS OPERATOR [employer] [address] [place] [address] 05/23/2026 8:30 AM EDT Procedure Visit [facility] [address] [place] [address] Segundo Lee DO [address] [place] [address] [address] [place], [place] [id number] documented as of this encounter Visit Diagnoses Not on filedocumented in this encounter Care Teams Obstetrics And Gynecology Professor Relationship Specialty Start Date End Date Elian Dia DO PCP - General Internal Medicine 04/29/23 06/30/24 Aimee Burkett PA [address] [facility] [address] [place] [address] PCP - General Family Medicine 07/01/24 documented as of this encounter
[2025-05-21 15:08] LABS: Age Gdln ACOG Testing Note (.); IGP, Aptima HPV, rfx 16/18,45 Note (.)
== END 2025-05-17 21:25 | disposition home or self-care (01) ==
LOC: LAB 21:24
PROVIDERS: PCP Internal Medicine; Visit Provider Obstetrics & Gynecology
DX: Z01.419 Encounter for gynecological examination (general) (routine) without abnormal findings (principal)
CPT/HCPCS: 87624; 88175